=== PATIENT | male | born 1945 | race Caucasian/White ===

== ENCOUNTER 2016-06-26 11:45 | Emergency (ER) | payer OTHER ==
[~2016-06-26] VITALS: Ht 167.6 cm; Wt 91.8 kg
[2016-06-26 11:55] VITALS: BP 137/87; PULSE 84; RESP 16; TEMP 98.3; O2SAT 97
[2016-06-26] MEDS ORDERED: LISI40TA PO (12:12)
[2016-06-26] MEDS ORDERED: PROZ20CA11 PO (12:12)
[2016-06-26] MEDS ORDERED: TAMS0.4C4 PO (12:12)
[2016-06-26] MEDS ORDERED: MULT1TAB85 PO (12:12)
[2016-06-26] MEDS ORDERED: CARB25TA9 PO (12:12)
[2016-06-26] MEDS ORDERED: AMLO10TA2 PO (12:12)
[2016-06-26] MEDS ORDERED: ASPI1TAB69 PO (12:12)
[2016-06-26] MEDS ORDERED: BUPR75TA PO (12:12)
[2016-06-26] MEDS ORDERED: POTA-163 PO (12:12)
[2016-06-26] MEDS ORDERED: OXYB5TAB10 PO (12:12)
[2016-06-26] MEDS ORDERED: DIPHTH/TETANUS/ACEL PERTUSSIS (BOOSTER) 0.5 ML VIAL/PFS IM ONE (12:15)
--- NOTE | 2016-06-26 12:58 | PD ---
HPI Chief Complaint: Fall Time Seen by Provider: 12:03 Travel History International Travel<30 days: No Contact w/Intl Traveler<30days: No Traveled to known affect area: No History of Present Illness HPI Patient is a 71 year old male with a history of Parkinson's Disease, who comes in after a trip and fall today. He says his feet got tangled in a computer cord and he fell onto his face. He says it happened so quickly he was unable to get his hands out. He denies any LOC. He denies any headache, dizziness, nausea, vomiting. He denies any chest pain or any symptoms prior to the event. He says that his nose was bleeding and he was concerned that he broke his nose. He was evaluated by EMS and was advised to come to the ED. He does not know when his last tetanus vaccine was. He denies neck pain or tingling in his upper or lower extremities. PFSH Past Medical History Hx Anticoagulant Therapy: Yes (asa 81mg) Depression: Yes Cardiovascular Problems: Yes (htn on meds) Hypertension: Yes Parkinson's Disease: Yes Social History Alcohol Use: No Tobacco Use: No Substance Use: No Allergies-Medications (Allergen,Severity, Reaction): Coded Allergies: No Known Allergies (Unverified , 06/26/16) Reported Meds & Prescriptions Reported Meds & Active Scripts Active Amoxicillin 500 Mg Tab 500 Mg PO BID 7 Days Reported Aspirin 81 Mg Tabdr 81 Mg PO DAILY Multivitamin Men (Multiple Vitamins W/ Minerals) 1 Tab Tab 1 Tab PO DAILY Tamsulosin (Tamsulosin HCl) 0.4 Mg Cap 0.4 Mg PO HS Ditropan (Oxybutynin Chloride) 5 Mg Tab 5 Mg PO Q8HR Potassium Chloride ER (Potassium Chloride) 20 Meq Tab 20 Meq PO DAILY Bupropion HCl 75 Mg Tab 150 Mg PO BID Prozac (Fluoxetine HCl) 20 Mg Cap 20 Mg PO DAILY Carbidopa-Levodopa 25-100 Mg Tab 1 Tab PO Q8HR Amlodipine (Amlodipine Besylate) 10 Mg Tab 10 Mg PO DAILY Lisinopril 40 Mg Tab 40 Mg PO DAILY Review of Systems General / Constitutional: No: Fever, Chills Eyes: No: Diploplia, Blurred Vision HENT: No: Headaches, Lightheadedness Cardiovascular: No: Chest Pain or Discomfort Respiratory: No: Shortness of Breath Gastrointestinal: No: Nausea, Vomiting Musculoskeletal: No: Pain Skin: No Change in Pigmentation Neurologic: No: Weakness, Dizziness Physical Exam Narrative GENERAL: Awake and alert in no acute distress. SKIN: Warm and dry. Abrasion to the bridge of the nose, no active bleeding. HEAD: Hematoma to the middle of the forehead. No flores signs or raccoon eyes. EYES: Pupils equal and round. No scleral icterus. Extraocular movements intact. ENT: Mucous membranes pink and moist. No septal hematoma. No tenderness to palpation of the nose. NECK: Trachea midline. No JVD. No cervical spine tenderness. CARDIOVASCULAR: Regular rate and rhythm. No murmur appreciated. RESPIRATORY: No accessory muscle use. Clear to auscultation. Breath sounds equal bilaterally. MUSCULOSKELETAL: No obvious deformities. No clubbing. No cyanosis. No edema. NEUROLOGICAL: Awake and alert. No obvious cranial nerve deficits. Motor grossly within normal limits. Normal speech. Data Data Last Documented VS Vital Signs Date Time Temp Pulse Resp B/P Pulse Ox O2 Delivery O2 Flow Rate FiO2 06/26/16 14:40 74 20 142/94 97 Room Air 06/26/16 11:[address] Brain W/O Iv Contrast(Rout) (06/26/16 ) Ct Cerv Spine W/O Contrast (06/26/16 ) Ct Facial Bones W/O Iv Cont (06/26/16 ) Meom-Hiq-Atmixu (Booster) Inj (Boostrix (06/26/16 12:15) MDM Medical Decision Making Medical Screen Exam Complete: Yes Emergency Medical Condition: Yes Medical Record Reviewed: Yes Differential Diagnosis Fall versus ICH versus nasal bone fracture versus C-spine fracture versus hematoma Narrative Course Patient is a 71-year-old male who comes in after he tripped and fell on his face. Exam shows a hematoma to the forehead as well as a superficial laceration to the bridge of the nose. CT head, C-spine, facial bones performed. CT of the facial bones shows a comminuted nasal bone fracture, minimally displaced. There is no ICH or skull fracture present. CT of the C- spine is negative for any acute findings. Patient says he does not want any pain medicine at this time. Laceration on the nose continued to bleed, so Dermabond was applied. Patient advised to take Tylenol or ibuprofen as needed for pain. Given a prescription for amoxicillin for the nasal bone fracture and laceration to his nose. Advised follow-up with ENT. Advised to return to the ED as needed for any worsening symptoms. Patient and his are comfortable with this plan at this time. Diagnosis Primary Impression: Nasal bone fracture Qualified Code: S02.2XXA - Closed fracture of nasal bone, initial encounter Additional Impression: Fall Qualified Code: W19.XXXA - Fall, initial encounter Referrals: Jorge Luis Hernandez MD call for appointment Patient Instructions: General Instructions, Nasal Fracture (ED) Additional Instructions: Follow up with ENT. Take Tylenol or Ibuprofen as needed for pain. Take all of your antibiotic. Return to the ED as needed for any worsening symptoms. Scripts Amoxicillin 500 Mg Ngn999 Mg PO BID 7 Days Ref 0 Prov:Salina David MD 06/26/16 Disposition: 01 DISCHARGE HOME Condition: Stable Salina David MD Jun 26, 2016 12:58
--- NOTE | 2016-06-26 13:31 | RADHPO ---
EXAM DATE/TIME: 06/26/2016 13:17 [facility] COMPARISON: No previous studies available for comparison. INDICATIONS : Fell this morning. Frontal injury. RADIATION DOSE: 61.50 CTDIvol (mGy) MEDICAL HISTORY : Hypertension. SURGICAL HISTORY : None. ENCOUNTER: Initial ACUITY: 1 day PAIN SCALE: 3/10 LOCATION: cranial TECHNIQUE: Multiple contiguous axial images were obtained of the head. Using automated exposure control and adj ustment of the mA and/or kV according to patient size, radiation dose was kept as low as reasonably a chievable to obtain optimal diagnostic quality images. FINDINGS: CEREBRUM: The ventricles are normal for age. No evidence of midline shift, mass lesion, hemorrhage or acute in farction. No extra-axial fluid collections are seen. POSTERIOR FOSSA: The cerebellum and brainstem are intact. The 4th ventricle is midline. The cerebellopontine angle i s unremarkable. EXTRACRANIAL: The visualized portion of the orbits is intact. SKULL: The calvaria is intact. No evidence of skull fracture. There is soft tissue swelling over the left f rontal bone. CONCLUSION: Soft tissue swelling over the left frontal bone with no acute hemorrhage or mass effe ct. Garfield Anne MD on June 26, 2016 at 13:28 Board Certified Radiologist. This report was verified electronically.
--- NOTE | 2016-06-26 13:46 | RADHPO ---
EXAM DATE/TIME: 06/26/2016 13:17 [facility] COMPARISON: No previous studies available for comparison. INDICATIONS : Fell this morning. Frontal injury. Facial abrasion with pain and swelling RADIATION DOSE: 25.71 CTDIvol (mGy) MEDICAL HISTORY : Hypertension. SURGICAL HISTORY : None. ENCOUNTER: Initial ACUITY: 1 day PAIN SCORE: 3/10 LOCATION: facial TECHNIQUE: Volumetric scanning of the facial bones was performed. Using automated exposure control and adjustme nt of the mA and/or kV according to patient size, radiation dose was kept as low as reasonably achiev able to obtain optimal diagnostic quality images. FINDINGS: ORBITS: The orbital and infraorbital osseous structures are intact. The retroconal structures have a normal configuration. No radiopaque foreign bodies are seen. NASAL BONE: There is a mildly comminuted nondisplaced nasal bone fracture with mild overlying soft tissue swellin g. ZYGOMATIC ARCHES: Symmetric without evidence of fracture. SINUSES: The maxillary, ethmoid and frontal sinuses are intact. No air-fluid levels seen. NASAL CAVITY: The nasal septum is intact and midline. The lacrimal ducts are intact. SOFT TISSUES: No radiopaque foreign bodies seen. There is soft tissue swelling over the frontal bone. INTRACRANIAL: No intracranial air seen. CRIBIFORM PLATE: Grossly intact. CONCLUSION: 1. Mildly comminuted nondisplaced nasal bone fracture with overlying soft tissue swelling. 2. Soft tissue swelling over the frontal bone. Garfield Anne MD on June 26, 2016 at 13:43 Board Certified Radiologist. This report was verified electronically.
--- NOTE | 2016-06-26 14:26 | RADHPO ---
EXAM DATE/TIME: 06/26/2016 13:17 [facility] COMPARISON: No previous studies available for comparison. INDICATIONS : Fell this morning. Frontal injury. Neck pain. RADIATION DOSE: 26.68 CTDIvol (mGy) MEDICAL HISTORY : Hypertension. SURGICAL HISTORY : None. ENCOUNTER: Initial ACUITY: 1 day PAIN SCALE: 3/10 LOCATION: neck TECHNIQUE: Volumetric scanning of the cervical spine was performed. Multiplanar reconstructions in the sagittal, coronal and oblique axial planes were performed. Using automated exposure control and adjustment o f the mA and/or kV according to patient size, radiation dose was kept as low as reasonably achievable to obtain optimal diagnostic quality images. FINDINGS: The sagittal reconstructions demonstrate normal alignment and normal prevertebral soft tissues. The d ens is intact and there is a normal atlantoaxial relationship. Mild degenerative disc changes are pre sent with disc space narrowing and hypertrophic change. The axial images demonstrate that the vertebral bodies and posterior elements are intact. The soft ti ssues are within normal limits. There is no evidence of acute fracture or malalignment. CONCLUSION: Negative trauma CT. Garfield Anne MD on June 26, 2016 at 14:23 Board Certified Radiologist. This report was verified electronically.
[2016-06-26 14:40] VITALS: BP 142/94; PULSE 74; RESP 20; O2SAT 97
[2016-06-26] MEDS ORDERED: AMOX500T PO (14:42)
== END 2016-06-26 15:07 | disposition home or self-care (01) ==
LOC: PHEFT 11:45
DX: S02.2XXA Fracture of nasal bones, initial encounter for closed fracture (principal); W18.09XA Striking against other object with subsequent fall, initial encounter; Z23 Encounter for immunization
CPT/HCPCS: 12011; 70450; 70486; 72125; 90471; 90715

== ENCOUNTER 2018-02-28 13:27 | Inpatient (IN) ==
--- NOTE | 2018-02-28 13:36 | ED ---
HPI General Stated Complaint: stroke alert Time Seen by Provider: 02/28/18 13:30 Source: EMS Mode of arrival: EMS Limitations: altered mental status History of Present Illness Onset (ago): hour(s) (1) Time: 12:30 Timing confirmed by: spouse Location: Reports right face and altered History of same: No Severity: moderate Relieving factors: none Exacerbating factors: none Context: Reports sudden onset On Anticoagulants: No Treatments Prior to Arrival: Reports none Related Data Allergies Allergy/AdvReac Type Severity Reaction Status Date / Time No Known Allergies Allergy Uncoded 06/26/16 12:10 Review of Systems ROS Unobtainable ROS Unobtainable: unobtainable due to mental status Exam Const General: cooperative, healthy appearing and comfortable Orientation: awake HENMT Head: normal to inspection, normocephalic and atraumatic Eyes Alignment and Position: alignment normal Conjunctivae: conjunctivae normal Sclera: sclerae normal Pupils: PERRL EOM: movement deficit unable to deviate medially (on right) and unable to deviate laterally (on left) Neck Neck: normal visual inspection, no lymphadenopathy and no meningeal signs Chest Chest: normal inspection of the chest Resp Effort & Inspection: normal respiratory effort and able to speak in complete sentences Auscultation: clear to auscultation bilaterally Cardio Rate: regular rate Rhythm: regular rhythm Back/Spine/Pelvis Cervical Spine: cervical ROM normal Thoracic/Lumbar Spine: thoraco-lumbar ROM normal Skin General: no rashes or lesions noted, turgor normal and dry skin Neuro General: awake and moves all extremities Cranial Nerves: other Cognition: abnormal cognition (Sleepy. He does open his eyes to command. He moves his extremities on command.) Speech: anomia and expressive aphasia Motor: strength 5/5 throughout and no fasciculations Extrem General: normal to inspection and full ROM Psych Appearance: grossly normal Mental Status: mental status grossly normal Speech and Movement: speech and movement normal Mood: congruent mood Affect: normal affect Attitude: cooperative Thought Process: normal Thought Content: normal Judgment: judgment good Course Reevaluation(s) Reevaluation #1: No change in his neurological status on return from CT. Time: 14:16 Consultations Consultation #1: Dr. Martinez, radiologist, reports that the CT of his head is negative for bleed. Time: 14:02 Consultation #2: Dr. Martinez, radiologist, reports that the CTA of his head is negative. Time: 14:18 Consultation #3: Dr. Dove, neurologist. Time: 13:39 Additional Consultation(s): Dr. Hardin, manager transfusion Initial Documented Vital Signs Pulse Oximetry 97 02/28/18 14:04 Last Documented Vital Signs Pulse Oximetry 97 02/28/18 14:09 Critical Care Time Critical Care Time: Yes Total Critical Care Time: 60 Attestation: Time to perform other separately billable procedures was not included in the critical care time. My time did not include minutes spent treating any other patients simultaneously or on activities that did not directly contribute to the patient's treatment. The services I provided to this patient were to treat and/or prevent clinically significant deterioration due to acute neurological event I provided critical care services requiring my management, as noted below: Chart data review, documentation time, medication orders and management, vital sign assessments/reviewing monitor data, ordering and reviewing lab tests, ordering and interpreting/reviewing x-rays and diagnostic studies, care of the patient and discussion of the patient with the admitting physicians NIH Stroke Scale NIHSS Time Completed NIHSS Time Completed: 13:28 NIH Stroke Scale Level of Consciousness: 1-Drowsy Orientation Questions: 2-Neither task correct Responds to Commands: 0-Both tasks correct Gaze Eye Movement: 2-Complete gaze palsy (won't look to left) Facial Movement: 1-Minor facial palsy Motor Functions Arm LEFT: 0-No drift Motor Functions Arm RIGHT: 0-No drift Motor Functions Leg LEFT: 0-No drift Motor Functions Leg RIGHT: 0-No drift Limb Ataxia: 0-No ataxia Sensory Loss: 0-No sensory loss Best Language: 3-Mute or global aphasia Articulation: 2-Severe dysarthria Extinction or Inattention Sensory: 0-Absent Total: 11 Medical Decision Making [facility] Narrative Medical decision making narrative: This patient presents with acute neurological symptoms. Onset 12:30 PM. He was reportedly normal prior to that. EVAC got the history from his that he has had several recent falls with blows to his head. He has not sought medical care following the falls. He reportedly takes no anticoagulants. His subsequently became available for interview. He does not take an anticoagulant. He does take aspirin. She is able to confirm the onset of symptoms at 12:30 PM. Medical Screen Exam Complete: Yes Emergency Medical Condition: Yes Differential Diagnosis Differential Diagnosis: Differential diagnosis includes but is not limited to TIA, CVA, brain tumor, migraine, anxiety Medical Records Medical records reviewed: Yes I reviewed the patient's medical records. He has a history of Parkinson's disease and hypertension. He has been on aspirin in the past. There is no record of an oral anticoagulant. Lab Data Lab Results 02/28/18 Range/Units 13:29 POC Hgb (Calc) 10.5 L (13.0-17.0) g/dL POC Hct 31.0 L (39-51.0) % POC Sodium 146 H (137-144) mmol/L POC Potassium 3.2 L (3.6-5.0) mmol/L POC Chloride 106 (102-111) mmol/L POC BUN 28 H (5-21) mg/dL POC Creatinine 1.4 H (0.6-1.3) mg/dL POC Glucose 139 H (68-110) mg/dL Imaging Data Radiologist's impression: Head CT 02/28/18 13:36 CONCLUSION: 1. No acute intracranial abnormality. 2. Atrophy. 3. Prominent ventricles slightly out of range for the overlying sulcal pattern. This may relate to more centralized forms of atrophy but I cannot exclude normal pressure hydrocephaly. Report was called by [Dr. Martinez to Dr. Linares at 1402 hours ] Head CTA 02/28/18 13:36 CONCLUSION: 1. Negative CTA Head. Results were called to Dr. Linares by Dr. Martinez at 1417 hours ECG Data EKG Prior to Arrival: No Attestation: I personally reviewed and interpreted this ECG as follows: (EKG shows a sinus rhythm with a rate of. He has a right bundle branch block. No acute STT wave changes.) Discharge Plan Discharge Disposition Patient Disposition: 30 Still Patient Discharge Details Diagnosis: Acute embolic stroke Physicians Team ED Provider: Jinny Linares Primary Care Provider: Joe Georges Other Providers: Bessy Dove Status ED Status: With Doctor
[2018-02-28] MEDS ORDERED: ALTEPLASE DRIP IV.SIG ONE (14:04)
[2018-02-28] MEDS ORDERED: Alteplase Bolus 9 MG/9 ML Syringe IV.PUSH ONE (14:04)
--- NOTE | 2018-02-28 14:07 | CT ---
EXAM DATE: 02/28/2018 1:38 PM EDT AGE/SEX: 72 years / Male INDICATIONS: STROKE ALERT CLINICAL DATA: This is the patient's initial encounter. Patient reports that signs and symptoms have been present for 1 day and indicates a pain score of Nonresponsive. MEDICAL/SURGICAL HISTORY: Non-responsive. Non-responsive. RADIATION DOSE: 60.59 CTDI (mGy) COMPARISON: C, CTA HEAD W CONTRAST W 3D, 02/28/2018. . TECHNIQUE: CT of the head without contrast. Using automated exposure control and adjustment of the mA and/or kV according to patient size, radiation dose was kept as low as reasonably achievable to ob tain optimal diagnostic quality images. DICOM format image data is available electronically for revi ew and comparison. FINDINGS: Cerebrum: Supratentorial and renal atrophy. Ventricular pattern is prominent and slightly out of ran ge for the overlying sulcal pattern. The ventricles are normal for age. No evidence of midline shift , mass lesion, hemorrhage or acute infarction. No extraaxial fluid collections are seen. Posterior Fossa: The cerebellum and brainstem are intact. The 4th ventricle is midline. The cerebe llopontine angle is unremarkable. Extracranial: The visualized portion of the orbits is intact. Skull: The calvaria is intact. No evidence of skull fracture. CONCLUSION: 1. No acute intracranial abnormality. 2. Atrophy. 3. Prominent ventricles slightly out of range for the overlying sulcal pattern. This may relate to m ore centralized forms of atrophy but I cannot exclude normal pressure hydrocephaly. Report was called by [Dr. Martinez to Dr. Linares at 1402 hours ] Electronically signed by: Jc Martinez MD 02/28/2018 2:06 PM EDT
--- NOTE | 2018-02-28 14:20 | CT ---
EXAM DATE: 02/28/2018 1:38 PM EDT AGE/SEX: 72 years / Male INDICATIONS: STROKE ALERT CLINICAL DATA: This is the patient's initial encounter. Patient reports that signs and symptoms have been present for 1 day and indicates a pain score of Nonresponsive. MEDICAL/SURGICAL HISTORY: Non-responsive. Non-responsive. RADIATION DOSE: 10.68 CTDI (mGy) ; Combined studies COMPARISON: [facility] [place], CT HEAD W/O CONTRAST, 02/28/2018. . TECHNIQUE: Volumetric scanning was performed using a multi-row detector CT scanner during bolus infu mary of 75ML ml Visipaque 320 (iodixanol) nonionic water-soluble contrast as a cumulative dose for m ultiple exams. The data was post processed with a variety of visualization algorithms including ful l volume maximum intensity projection, multi-planar sliding thin slab reformation, curved planar refo rmation, and surface rendering techniques. Using automated exposure control and adjustment of the mA and/or kV according to patient size, radiation dose was kept as low as reasonably achievable to obta in optimal diagnostic quality images. DICOM format image data is available electronically for review and comparison. FINDINGS: There is excellent visualization of the major intracranial arteries out to the second-order branch ve ssels. There is no evidence for aneurysm, vessel truncation or stenosis, and no evidence for vascula r malformation. CONCLUSION: 1. Negative CTA Head. Results were called to Dr. Linares by Dr. Martinez at 1417 hours Electronically signed by: Jc Martinez MD 02/28/2018 2:19 PM EDT
[2018-02-28] MEDS: Sod Chloride 0.9% Inj 1,000 ML IV.CONT SCH (14:32)
[2018-02-28] MEDS ORDERED: HYDROmorphone PF Inj 1 MG/ML Ampul IV.PUSH PRN (14:34)
[2018-02-28] MEDS ORDERED: Acetaminophen 325 MG Tablet PO PRN (14:34)
[2018-02-28] MEDS ORDERED: Bisacodyl 10 MG Supp RECTAL PRN (14:34)
--- NOTE | 2018-02-28 14:37 | CT ---
EXAM DATE: 02/28/2018 1:38 PM EDT AGE/SEX: 72 years / Male INDICATIONS: STROKE ALERT CLINICAL DATA: This is the patient's initial encounter. Patient reports that signs and symptoms have been present for 1 day and indicates a pain score of Nonresponsive. MEDICAL/SURGICAL HISTORY: Non-responsive. Non-responsive. RADIATION DOSE: 10.68 CTDI (mGy) ; Combined studies COMPARISON: No prior exams available for comparison. TECHNIQUE: Volumetric scanning was performed using a multirow detector CT scanner during bolus infus ion of 75ML ml Visipaque 320 (iodixanol) nonionic water-soluble contrast as a cumulative dose for mu ltiple exams. The data was postprocessed with a variety of visualization algorithms including full- volume maximum intensity projection, multiplanar sliding thin-slab reformation, curved-planar reforma tion, and surface-rendering techniques. Using automated exposure control and adjustment of the mA an d/or kV according to patient size, radiation dose was kept as low as reasonably achievable to obtain optimal diagnostic quality images. DICOM format image data is available electronically for review an d comparison. FINDINGS: Aortic Arch: There is a three-vessel origin of the great vessels from the aorta. No evidence of ost ial narrowing Right Carotid: The common carotid artery is intact. The carotid bulb has a normal configuration wit hout ulceration or narrowing. The internal carotid artery lumen is smooth without stenosis. The ext ernal carotid artery is intact. Left Carotid: The common carotid artery is intact. The carotid bulb has a normal configuration with out ulceration or narrowing. The internal carotid artery lumen is smooth without stenosis. The exte rnal carotid artery is intact. Vertebrals: The vertebral arteries have a symmetric diameter. No stenotic lesions are seen. A degenerative cervical spine. Percent stenosis is calculated using the diameter of the stenotic region over the diameter of the nor mal distal internal carotid artery. CONCLUSION: 1. Patent carotid arteries and vertebral arteries bilaterally. Electronically signed by: Jc Martinez MD 02/28/2018 2:36 PM EDT
[2018-02-28] MEDS ORDERED: Labetalol HCl Inj 100 MG/20 ML Vial IV.PUSH PRN (14:38)
[2018-02-28] MEDS ORDERED: niCARdipine Inj 25 MG in Sodium Chlor 0.9% Inj 240 ML IV.CONT PRN (14:38)
[2018-02-28] MEDS ORDERED: Dextrose 50% in Water 50 ML Vial IV.PUSH PRN (14:38)
[2018-02-28] MEDS ORDERED: Magnesium Sulfate Inj 2 GM in Sodium Chlor 0.9% Inj 96 ML IV.SIG PRN (14:44)
[2018-02-28] MEDS ORDERED: Magnesium Sulfate Inj 4 GM in Sodium Chlor 0.9% Inj 92 ML IV.SIG PRN (14:44)
[2018-02-28] MEDS ORDERED: Potassium Chlor 20 mEq Premix 20 MEQ/100 ML PIGGYBACK IV.SIG PRN (14:44)
[2018-02-28] MEDS ORDERED: Sodium Phosphate Inj 30 MMOL in Sodium Chlor 0.9% Inj 250 ML IV.SIG PRN (14:44)
[2018-02-28] MEDS ORDERED: Potassium Phosphate Inj 30 MMOL in Sodium Chlor 0.9% Inj 250 ML IV.SIG PRN (14:44)
[2018-02-28] MEDS ORDERED: Potassium Phosphate 500 MG Soluble Tablet PO PRN ×2 (14:44)
[2018-02-28] MEDS ORDERED: Potassium Chlor 40 mEq Premix 40 MEQ/100 ML PIGGYBACK IV.SIG PRN ×2 (14:44)
[2018-02-28] MEDS ORDERED: Magnesium Oxide 400 MG Tablet PO PRN (14:44)
--- NOTE | 2018-02-28 15:11 | XR ---
EXAM DATE: 02/28/2018 1:36 PM EDT AGE/SEX: 72 years / Male INDICATIONS: Stroke alert. CLINICAL DATA: This is the patient's initial encounter. Patient reports that signs and symptoms have been present for 1 day and indicates a pain score of 0/10. MEDICAL/SURGICAL HISTORY: Hypertension. None. COMPARISON: . FINDINGS: A single AP view of the chest demonstrates the lungs to be symmetrically aerated without evidence of mass, infiltrate or effusion. Lungs are under aerated.. The cardiomediastinal contours are unremarkab le. Osseous structures are intact. CONCLUSION: Negative for acute process Electronically signed by: Marcell Marinelli MD 02/28/2018 3:09 PM EDT
--- NOTE | 2018-02-28 15:14 | P.HPCC ---
History of Present Illness Service: Critical care medicine Primary Care Physician: Joe Georges MD Chief Complaint: Global aphasia with right-sided weakness/acute History of Present Illness: This is a 72-year-old male. Admission 02/28/2018. Past medical history includes depression/Parkinson's disease/BPH, urge incontinence, hypertension with history of nasal fracture. Over the past month, patient has had 8 falls according to at bedside. Patient denies however. Patient presents to [facility] acute onset of global aphasia and subjective right-sided weakness with facial droop according to . NIH scale was 11 documented with 1 for loss of consciousness, 2 for orientation, 3 for global aphasia, 2 for dysarthria, and 3 for lack of gaze to the left side CT brain revealed ventriculomegaly but no acute intracranial findings. CT angiogram of brain negative for acute intracranial findings. Sodium was elevated 146 potassium 3.2. Creatinine 1.4. Hemoglobin 10.5. Case was discussed with Dr. Dove/neurology. Patient received 7.7 mg alteplase bolus followed by 69.3 mg On my examination the patient does have a slight right facial droop. Aphasia seems resolving. He is currently oriented to person place and time. There is currently no field vision cut. His Parkinson's tremor makes coordination difficult to evaluate but strength is 5 out of 5 bilateral upper and lower extremities. Review of Systems Constitutional: Denies anorexia, Denies body ache(s), Denies chills Eyes: Reports blurry vision, Denies blind spots, Denies requires corrective lenses Ears, Nose, Mouth, and Throat: Reports poor balance, Denies abnormal hearing, Denies post nasal drip Cardiovascular: Denies chest pain, Denies shortness of breath, Denies shortness of breath with activity Respiratory: Denies chest congestion, Denies cough Gastrointestinal: Denies abdominal pain Genitourinary: Reports difficulty urinating, Reports urinary frequency, Reports urinary hesitancy, Reports urinary incontinence Musculoskeletal: Reports abnormal walking, Denies back pain, Denies body aches, Denies neck pain Skin/Breast: Denies bleeding lesions Neurologic: Reports abnormal movements, Reports abnormal walking, Reports frequent falls, Reports lack of coordination, Reports loss of vision, Denies abnormal hearing, Denies dizziness, Denies localized weakness, Denies numbness Psychiatric: Reports depression, Denies anxiety Endocrine: Denies cold intolerance, Denies excessive sweating Hematologic/Lymphatic: Denies easy bleeding Allergic/Immunologic: Denies GI upset with certain foods PMFSH - History History Provided By: Family Member, Audio Visual Equipment Rental Clerk / EMT - Medical History Medical History: Medical History (Last Updated 02/28/18 @ 15:11 by Royal Hardin MD) Depression Enlarged prostate Hypertension Parkinson disease Restless leg syndrome Sleep apnea Varicose vein of leg - Surgical History Surgical History: Surgical History (Last Updated 02/28/18 @ 15:11 by Royal Hardin MD) History of tonsillectomy and adenoidectomy History of varicose vein stripping - Family History Family History: Family History (Last Updated 02/28/18 @ 15:11 by Royal Hardin MD) Mother Family history of depression Father Family history of depression - Tobacco History Second Hand Smoke Exposure: No Tobacco Use In Past 30 Days: No Smoking Status: Former smoker Tobacco Type: Cigarettes - Alcohol History How Often Do You Have a Drink Containing Alcohol: Never - Travel History History of Recent Travel: No Recent Travel in the [place] Within the Last 8 Weeks: No Recent Travel Out of the Country Within the Last 8 Weeks: No Medications and Allergies Active Medications: Active Medications Acetaminophen (Tylenol) 650 mg PO Q6H PRN PRN Reason: PAIN 1-10 AND/OR FEVER >101F Hydrocodone Bitart/Acetaminophen (Ada 5/325) 1 tab PO Q4H PRN PRN Reason: PAIN SCALE 1 TO 5 Al Hydroxide/Mg Hydroxide (Milk Of Aman Pedrozaq) 30 ml PO Q12H PRN PRN Reason: Mild Constipation Albuterol (Albuterol Neb (Prn)) 2.5 mg NEB Q2HR NEB PRN PRN Reason: SHORTNESS OF BREATH/WHEEZING Bisacodyl (Dulcolax Supp) 10 mg RECTAL DAILY PRN PRN Reason: SEVERE CONSITIPATION Chlorhexidine Gluconate (Chlorhexidine 2% Cloth) 3 pack TOPICAL DAILY@0400 BRITTNI Stop: 03/06/18 03:59 Chlorhexidine Gluconate (Chlorhexidine 2% Cloth) 3 pack TOPICAL DAILY@0400 PRN PRN Reason: Extra cloth needed Stop: 03/06/18 03:59 Dextrose (D50w Vial) 50 ml IV.PUSH UNSCH PRN PRN Reason: PER HYPOGLYCEMIA PROTOCOL Glucagon (Glucagon Inj) 1 mg OTHER UNSCH PRN PRN Reason: for Hypoglycemia Protocol Hydromorphone HCl (Dilaudid Pf Inj) 1 mg IV.PUSH Q4H PRN PRN Reason: PAIN SCALE 6 TO 10 Sodium Chloride (Ns Inj) 1,000 mls @ 70 mls/hr IV.CONT .[id number] [facility] Last Admin: 02/28/18 14:32 Dose: 70 mls/hr Nicardipine HCl 25 mg/ Sodium (Chloride) 250 mls @ 25 mls/hr IV.CONT TITRATE PRN; Protocol PRN Reason: Per Protocol Magnesium Sulfate 4 gm/ Sodium (Chloride) 100 mls @ 50 mls/hr IV.SIG UNSCH PRN PRN Reason: For Magnesium 0.9 - 1.1 mg/dL Magnesium Sulfate 2 gm/ Sodium (Chloride) 100 mls @ 50 mls/hr IV.SIG UNSCH PRN PRN Reason: For Magnesium 1.2 - 1.6 mg/dL Potassium Chloride (Kcl 40 Meq Premix Inj) 40 meq in 100 mls @ 50 mls/hr IV.SIG Q2H PRN PRN Reason: For Potassium 2.8 - 3.2 mEq/L Potassium Chloride (Kcl 20 Meq Premix Inj) 20 meq in 100 mls @ 50 mls/hr IV.SIG Q2H PRN PRN Reason: For Potassium 3.3 - 3.5 mEq/L Potassium Chloride (Kcl 40 Meq Premix Inj) 40 meq in 100 mls @ 25 mls/hr IV.SIG UNSCH PRN PRN Reason: For Potassium 3.3 - 3.5 mEq/L Potassium Chloride (Kcl 20 Meq Premix Inj) 20 meq in 100 mls @ 50 mls/hr IV.SIG Q2H PRN PRN Reason: For Potassium 2.8 - 3.2 mEq/L Potassium Phosphate 30 mmol/ (Sodium Chloride) 260 mls @ 42 mls/hr IV.SIG UNSCH PRN PRN Reason: SEE LABEL COMMENTS Sodium Phosphate 30 mmol/ (Sodium Chloride) 260 mls @ 42 mls/hr IV.SIG UNSCH PRN PRN Reason: For Phosphorus < 2.5 mg/dL Insulin Aspart (Novolog Insulin Correctional Sugar Inj) 0 unit SQ Q6HR BRITTNI; Protocol Labetalol HCl (Trandate Inj) 10 mg IV.PUSH Q1H PRN PRN Reason: SBP>180, DBP>100, HR>65 Lactulose (Lactulose Liq) 30 ml PO DAILY PRN PRN Reason: SEVERE CONSITIPATION Magnesium Oxide (Mag-Ox) 800 mg PO UNSCH PRN PRN Reason: For Magnesium 1.2 - 1.6 mg/dL Ondansetron HCl (Zofran Inj) 4 mg IV.PUSH Q6H PRN PRN Reason: NAUSEA OR VOMITING Pantoprazole Sodium (Protonix Inj) 40 mg IV.PUSH DAILY BRITTNI Potassium Bicarb/Potassium Chloride (K-Lyte Cl Eff) 50 meq PO UNSCH PRN PRN Reason: For Potassium 3.3 - 3.5 mEq/L Potassium Phosphate (K-Phos Original) 2,000 mg PO Q4H PRN PRN Reason: Phosphorus Less Than 2.5 mg/dL Potassium Phosphate (K-Phos Original) 2,000 mg PO UNSCH PRN PRN Reason: SEE LABEL COMMENTS Pravastatin Sodium (Pravachol) 40 mg PO HS BRITTNI Senna/Docusate Sodium (Norma-Colace) 1 tab PO BID BRITTNI Sennosides (Senokot) 17.2 mg PO Q12H PRN PRN Reason: Moderate Constipation Sodium Chloride (Ns Flush) 2 ml IV.FLUSH BID BRITTNI Sodium Chloride (Ns Flush) 2 ml IV.FLUSH UNSCH PRN PRN Reason: FLUSH AFTER USING IV ACCESS Allergies Allergy/AdvReac Type Severity Reaction Status Date / Time No Known Allergies Allergy Uncoded 06/26/16 12:10 Results - Imaging Impressions Head CT 02/28/18 13:36 CONCLUSION: 1. No acute intracranial abnormality. 2. Atrophy. 3. Prominent ventricles slightly out of range for the overlying sulcal pattern. This may relate to more centralized forms of atrophy but I cannot exclude normal pressure hydrocephaly. Report was called by [Dr. Martinez to Dr. Linares at 1402 hours ] Head CTA 02/28/18 13:36 CONCLUSION: 1. Negative CTA Head. Results were called to Dr. Linares by Dr. Martinez at 1417 hours Neck CTA 02/28/18 13:36 CONCLUSION: 1. Patent carotid arteries and vertebral arteries bilaterally. Exam Vital signs: Vital Signs 02/28/18 14:04 02/28/18 14:09 02/28/18 14:24 Temperature 98.6 F Pulse Rate 63 Respiratory Rate 18 Blood Pressure 165/78 H Pulse Oximetry 97 97 97 Intake & Output 02/27/18 02/28/18 02/28/18 18:59 06:59 18:59 Weight 85.4 kg - Constitutional no acute distress - Routine HEENT Exam Head: Present: normocephalic, atraumatic Eye: Present: EOMI, PERRL, normal accommodation ENT: Present: mucous membranes moist - Routine Neck Exam Present: supple, full ROM. Absent: JVD, carotid bruit - Routine Chest/Breast/Axilla Exam Chest wall: Absent: tenderness Breast: Absent: tenderness Axillae: Absent: lymphadenopathy - Routine Respiratory Exam Present: CTA bilaterally. Absent: accessory muscle use, rhonchi - Routine Cardiovascular Exam Present: RRR, S1, S2. Absent: murmur - Routine Abdominal Exam Present: soft, normoactive bowel sounds - Routine Extremities Exam Absent: cyanosis, clubbing, edema - Routine Skin Exam Present: intact - Routine Neurological Exam Present: alert, oriented X3, pronator drift, moving all extremities, hearing grossly intact, tremors. Absent: CN II-XII intact (Right facial droop), sensory deficit, motor deficit, altered mental status, hemineglect, fasciculations, normal speech - Detailed Neurological Exam Speech: Present: slurred Cerebellar function: Abnormal finger to nose, Abnormal heel to back, Abnormal dysdiadochokinesia Sensory: Normal lower extremity light touch, Normal lower extremity pin prick, Abnormal LE 2-point discrimination DTR: 4+: biceps (L), biceps (R), patellar (L), patellar (R) Septic Shock Reassessment Septic shock perfusion: reassessment completed Caprini VTE Risk Assessment Caprini VTE Risk Assessment: Moderate/High Risk (score >= 2) VTE Pharmacological Exception Reason: Documented Caprini Risk Assessment Model: Point Value = 1 Point Value = 2 Point Value = 3 Point Value = 5 Age 41-60 Minor surgery BMI > 25 kg/m2 Swollen legs Varicose veins or History of unexplained or recurrent spontaneous Oral contraceptives or hormone replacement Sepsis (< 1 month) Serious lung disease, including pneumonia (< 1 month) Abnormal pulmonary function Acute myocardial infarction Congestive heart failure (< 1 month) History of inflammatory bowel disease Medical patient at bed rest Age 61-74 Arthroscopic surgery Major open surgery (> 45 min) Laparoscopic surgery (> 45 min) Malignancy Confined to bed (> 72 hours) Immobilizing plaster cast Central venous access Age >= 75 History of VTE Family history of VTE Factor V Leiden Prothrombin [id number] Lupus anticoagulant Anticardiolipin antibodies Elevated serum homocysteine Heparin-induced thrombocytopenia Other congenital or acquired thrombophilia Stroke (< 1 month) Elective arthroplasty Hip, pelvis, or leg fracture Acute spinal cord injury (< 1 month) Prophylaxis Regimen: Total Risk Factor Score Risk Level Prophylaxis Regimen 0-1 Low Early ambulation 2 Moderate Order ONE of the following: *Sequential Compression Device (SCD) *Heparin 5000 units SQ BID 3-4 Higher Order ONE of the following medications: *Heparin 5000 units SQ TID *Enoxaparin/Lovenox 40 mg SQ daily (WT < 150 kg, CrCl > 30 mL/min) *Enoxaparin/Lovenox 30 mg SQ daily (WT < 150 kg, CrCl > 10-29 mL/min) *Enoxaparin/Lovenox 30 mg SQ BID (WT < 150 kg, CrCl > 30 mL/min) AND/OR *Sequential Compression Device (SCD) 5 or more Highest Order ONE of the following medications: *Heparin 5000 units SQ TID (Preferred with Epidurals) *Enoxaparin/Lovenox 40 mg SQ daily (WT < 150 kg, CrCl > 30 mL/min) *Enoxaparin/Lovenox 30 mg SQ daily (WT < 150 kg, CrCl > 10-29 mL/min) *Enoxaparin/Lovenox 30 mg SQ BID (WT < 150 kg, CrCl > 30 mL/min) AND *Sequential Compression Device (SCD) Assessment and Plan - Assessment and Plan Plan: Neuro/Psych: CVA status post alteplase Parkinson's disease Depressive disorder NOS CT/CTA brain revealed no acute findings with exception of ventriculomegaly. Possible workup of NPH in future. MRI brain ordered along with carotid ultrasound Received 7.7 mg alteplase bolus followed by 69.3 mg over the preceding hour Neurology consultation 2D echocardiogram ordered Keep systolic blood pressure less than 180, diastolic pressure is 105 Hemoglobin A1c and lipid profile ordered Currently holding carbidopa/levodopa 25/101 tablet every 8 hours for Parkinson' s disease. Resume when clinically indicated Currently holding fluoxetine 20 mg daily and bupropion 150 mg twice daily for depression. Resume when clinically indicated Neurology consult appreciated Neurochecks per status post alteplase for CVA protocol. Head of bed flat times 12 hours CV: Essential hypertension Currently holding amlodipine 10 mg daily and lisinopril 40 mg a day for hypertension resume when clinically indicated As needed labetalol 10 mg IV every 8 hours and nicardipine drip to keep systolic blood pressure less than 180/diastolic blood pressure less than 105 2D echocardiogram ordered Lipid profile pending/started on pravastatin 40 mg at night Resp: Nasal cannula to maintain saturations greater than or equal to 92% Incentive spirometry while awake As needed albuterol aerosols every 2 hours. Dyspnea GI: N.p.o. status Pantoprazole for GI prophylaxis Docusate sodium/senna 1 tablet twice daily for bowel regimen : BPH urge incontinence Currently holding tamsulosin 0.4 mg daily and oxybutynin 5 mg every 8 hours for BPH has incontinence. Resume clinically indicated Endo: Sliding scale insulin to maintain euglycemia aspart insulin every 6 insulin low regimen Check TSH Renal: Acute kidney injury Monitor urine output Accurate I's and O's Avoid nephrotoxic medication Heme: Anemia Full CBC in a.m. to evaluate ID: Monitor for signs and symptomatology of infection MSK: Gait and balance disorder PT/OT evaluate and treat FEN: Hypernatremia Hypopotassemia Replace electrolytes as clinically indicated per ICU electrolyte protocol Currently on normal saline at 70 cc an hour BMP, magnesium phosphorus in a.m. Access -Utilize peripheral IV. Central line if indicated Prophylaxis -GI -pantoprazole -DVT -SCD/no pharmacological prophylaxis 24 hours post alteplase Level 3 admission Code Status: Full code Discussed Condition With: Patient. . ED physician Vijay. Care plan discussed and all questions answered.
--- NOTE | 2018-02-28 16:08 | P.CONNEU ---
History of Present Illness Service: Neurology Consult date: 02/28/18 Reason for Consult: Stroke Primary Care Provider: Joe Georges MD Chief Complaint: Global aphasia with right-sided weakness/acute History of Present Illness: 72 y/o male with hx of PD and HTN was brought to the hospital by [facility] for stroke alert. Pts noted that he was having weakness while trying to walk, he stated that he felt lightheaded. His noted facial droop and right sided weakness and difficulty with speech. This was noted on admission to the ER. No previous hx of stroke or TIA. He takes ASA 81mg daily at home and did not miss any doses. He denies any hx of atrial fibrillation. He had previously been on Sinemet for his PD but this caused lightheadedness and was changed to Requip 0.5mg tid. He follows outpatient with Dr. Muller for neurology. He had negative CT and CTA, it was decided he would be given TPA. His notes that his speech began improving after he received the TPA. He denies any current problems, his no longer notices problems with his speech. He denies headache or chest pain or shortness of breath Review of Systems All other systems reviewed negative except as stated in HPI PMFSH - History History Provided By: Family Member, Audio Visual Engineer / EMT - Medical History Medical History: Medical History (Last Reviewed 03/01/18 @ 09:29 by Jorge Luis Moon) Depression Enlarged prostate Hypertension Parkinson disease Restless leg syndrome Sleep apnea Varicose vein of leg - Surgical History Surgical History: Surgical History (Last Reviewed 03/01/18 @ 09:29 by Jorge Luis Moon) History of tonsillectomy and adenoidectomy History of varicose vein stripping - Family History Family History: Family History (Last Updated 02/28/18 @ 15:11 by Royal Hardin MD) Mother Family history of depression Father Family history of depression - Tobacco History Second Hand Smoke Exposure: No Tobacco Use In Past 30 Days: No Smoking Status: Former smoker Tobacco Type: Cigarettes - Alcohol History How Often Do You Have a Drink Containing Alcohol: Never - Substance Use History Substance History: No History of Abuse - Travel History History of Recent Travel: No Recent Travel in the [place] Within the Last 8 Weeks: No Recent Travel Out of the Country Within the Last 8 Weeks: No - Immunization History Tetanus Immunization: <5 Years Medications and Allergies Allergies Allergy/AdvReac Type Severity Reaction Status Date / Time No Known Allergies Allergy Verified 02/28/18 15:24 Home Medications Medication Instructions Recorded Confirmed Type aspirin 81 mg PO DAILY 02/28/18 02/28/18 History bupropion HCl [Wellbutrin XL] 150 mg PO QAM 02/28/18 02/28/18 History furosemide [Lasix] 20 mg PO DAILY 02/28/18 02/28/18 History lisinopril 40 mg PO DAILY 02/28/18 02/28/18 History mirtazapine [Remeron] 15 mg PO DAILY 02/28/18 02/28/18 History multivitamin 1 tab PO DAILY 02/28/18 02/28/18 History potassium chloride 10 meq PO DAILY 02/28/18 02/28/18 History ropinirole [Requip] 0.5 mg PO TID 02/28/18 02/28/18 History tamsulosin 0.4 mg PO DAILY 02/28/18 02/28/18 History Active Medications: Active Medications Acetaminophen (Tylenol) 650 mg PO Q6H PRN PRN Reason: PAIN 1-10 AND/OR FEVER >101F Hydrocodone Bitart/Acetaminophen ([place] 5/325) 1 tab PO Q4H PRN PRN Reason: PAIN SCALE 1 TO 5 Al Hydroxide/Mg Hydroxide (Milk Of Aman Luna) 30 ml PO Q12H PRN PRN Reason: Mild Constipation Albuterol (Albuterol Neb (Prn)) 2.5 mg NEB Q2HR NEB PRN PRN Reason: SHORTNESS OF BREATH/WHEEZING Bisacodyl (Dulcolax Supp) 10 mg RECTAL DAILY PRN PRN Reason: SEVERE CONSITIPATION Chlorhexidine Gluconate (Chlorhexidine 2% Cloth) 3 pack TOPICAL DAILY@0400 BRITTNI Stop: 03/06/18 03:59 Chlorhexidine Gluconate (Chlorhexidine 2% Cloth) 3 pack TOPICAL DAILY@0400 PRN PRN Reason: Extra cloth needed Stop: 03/06/18 03:59 Dextrose (D50w Vial) 50 ml IV.PUSH UNSCH PRN PRN Reason: PER HYPOGLYCEMIA PROTOCOL Glucagon (Glucagon Inj) 1 mg OTHER UNSCH PRN PRN Reason: for Hypoglycemia Protocol Hydromorphone HCl (Dilaudid Pf Inj) 1 mg IV.PUSH Q4H PRN PRN Reason: PAIN SCALE 6 TO 10 Sodium Chloride (Ns Inj) 1,000 mls @ 70 mls/hr IV.CONT .[id number] [facility] Last Admin: 02/28/18 14:32 Dose: 70 mls/hr Nicardipine HCl 25 mg/ Sodium (Chloride) 250 mls @ 25 mls/hr IV.CONT TITRATE PRN; Protocol PRN Reason: Per Protocol Magnesium Sulfate 4 gm/ Sodium (Chloride) 100 mls @ 50 mls/hr IV.SIG UNSCH PRN PRN Reason: For Magnesium 0.9 - 1.1 mg/dL Magnesium Sulfate 2 gm/ Sodium (Chloride) 100 mls @ 50 mls/hr IV.SIG UNSCH PRN PRN Reason: For Magnesium 1.2 - 1.6 mg/dL Potassium Chloride (Kcl 40 Meq Premix Inj) 40 meq in 100 mls @ 50 mls/hr IV.SIG Q2H PRN PRN Reason: For Potassium 2.8 - 3.2 mEq/L Potassium Chloride (Kcl 20 Meq Premix Inj) 20 meq in 100 mls @ 50 mls/hr IV.SIG Q2H PRN PRN Reason: For Potassium 3.3 - 3.5 mEq/L Potassium Chloride (Kcl 40 Meq Premix Inj) 40 meq in 100 mls @ 25 mls/hr IV.SIG UNSCH PRN PRN Reason: For Potassium 3.3 - 3.5 mEq/L Potassium Chloride (Kcl 20 Meq Premix Inj) 20 meq in 100 mls @ 50 mls/hr IV.SIG Q2H PRN PRN Reason: For Potassium 2.8 - 3.2 mEq/L Potassium Phosphate 30 mmol/ (Sodium Chloride) 260 mls @ 42 mls/hr IV.SIG UNSCH PRN PRN Reason: SEE LABEL COMMENTS Sodium Phosphate 30 mmol/ (Sodium Chloride) 260 mls @ 42 mls/hr IV.SIG UNSCH PRN PRN Reason: For Phosphorus < 2.5 mg/dL Insulin Aspart (Novolog Insulin Correctional Sugar Inj) 0 unit SQ Q6HR BRITTNI; Protocol Labetalol HCl (Trandate Inj) 10 mg IV.PUSH Q1H PRN PRN Reason: SBP>180, DBP>100, HR>65 Lactulose (Lactulose Liq) 30 ml PO DAILY PRN PRN Reason: SEVERE CONSITIPATION Magnesium Oxide (Mag-Ox) 800 mg PO UNSCH PRN PRN Reason: For Magnesium 1.2 - 1.6 mg/dL Ondansetron HCl (Zofran Inj) 4 mg IV.PUSH Q6H PRN PRN Reason: NAUSEA OR VOMITING Pantoprazole Sodium (Protonix Inj) 40 mg IV.PUSH DAILY BRITTNI Potassium Bicarb/Potassium Chloride (K-Lyte Cl Eff) 50 meq PO UNSCH PRN PRN Reason: For Potassium 3.3 - 3.5 mEq/L Potassium Phosphate (K-Phos Original) 2,000 mg PO Q4H PRN PRN Reason: Phosphorus Less Than 2.5 mg/dL Potassium Phosphate (K-Phos Original) 2,000 mg PO UNSCH PRN PRN Reason: SEE LABEL COMMENTS Pravastatin Sodium (Pravachol) 40 mg PO HS BRITTNI Senna/Docusate Sodium (Norma-Colace) 1 tab PO BID BRITTNI Sennosides (Senokot) 17.2 mg PO Q12H PRN PRN Reason: Moderate Constipation Sodium Chloride (Ns Flush) 2 ml IV.FLUSH BID BRITTNI Sodium Chloride (Ns Flush) 2 ml IV.FLUSH UNSCH PRN PRN Reason: FLUSH AFTER USING IV ACCESS Exam Vital signs: Vital Signs 02/28/18 14:04 02/28/18 14:09 02/28/18 14:24 Temperature 98.6 F Pulse Rate 63 Respiratory Rate 18 Blood Pressure 165/78 H Pulse Oximetry 97 97 97 Intake & Output 02/27/18 02/28/18 02/28/18 18:59 06:59 18:59 Intake Total 69.3 / 69.3 Balance 69.3 / 69.3 Weight 85.4 kg Intake: IV 69.3 / 69.3 Activase Drip 69.3 MG In Bag/ 69.3 / 69.3 Syringe 1 EACH @ 69.3 mls/hr IV .SIG ONCE ONE Rx#:[id number] - Routine Neurological Exam no bruit, heart is sinus rhythm Alert and orient x 3 CN II-XII, no facial asymmetry, eomi, no gaze deviation, tongue midline motor: moving all extremities against gravity, no focal deficit sensory: intact to light touch reflexes 1+ toes: equiv gait withheld speech: no aphasia noted, no dysarthria tremor: mild rest tremor and tremor with outstretched arms coordination: mild bradykinesia bilaterally Results - Labs CBC & Chem 7: 03/01/18 04:55 03/01/18 04:55 Labs: Laboratory Results - last 24 hr 02/28/18 02/28/18 13:29 13:29 POC Hgb (Calc) 10.5 L POC Hct 31.0 L POC Sodium 146 H POC Potassium 3.2 L POC Chloride 106 POC BUN 28 H POC Creatinine 1.4 H POC Glucose 139 H Blood Type O Positive Blood Type Recheck Required Antibody Screen Negative - Imaging Impressions Chest X-Ray 02/28/18 13:36 CONCLUSION: Negative for acute process Head CT 02/28/18 13:36 CONCLUSION: 1. No acute intracranial abnormality. 2. Atrophy. 3. Prominent ventricles slightly out of range for the overlying sulcal pattern. This may relate to more centralized forms of atrophy but I cannot exclude normal pressure hydrocephaly. Report was called by [Dr. Martinez to Dr. Linares at 1402 hours ] Head CTA 02/28/18 13:36 CONCLUSION: 1. Negative CTA Head. Results were called to Dr. Linares by Dr. Martinez at 1417 hours Neck CTA 02/28/18 13:36 CONCLUSION: 1. Patent carotid arteries and vertebral arteries bilaterally. Review/Management - Diagnosis (1) Parkinsons disease Code(s): G20 - Parkinson's disease Status: Acute Current Visit: Yes (2) Acute embolic stroke Code(s): I63.9 - Cerebral infarction, unspecified Status: Acute Current Visit: Yes - Review/Management Plan: will get MRI brain continue post TPA protocol ECHO telemetry check CT head 24 hr post TPA, if CT negative would start Plavix 75mg 24 hr post TPA monitor blood pressure, permissive HTN lipid panel, hgbA1C no change to PD meds at this time rehab consult with Dr. Mahmood PT/ST/OT [place] Addendum note pt seen examined and d/w PA as well as other staff. tpa given stroke post tpa protocol in icu. further testing as indicated.
[2018-02-28 16:42] LABS: Bilirubin,Urine Negative (Negative); Clarity,Urine Clear (Clear); Color,Urine Straw (Yellw/Straw); Glucose,Urine (UA) Negative (Negative); Leukocyte Esterase,Urine Negative (Negative); Nitrite,Urine Negative (Negative); Specific Gravity,Urine 1.016 (1.002-1.035)
--- NOTE | 2018-02-28 16:56 | MR ---
EXAM DATE: 02/28/2018 3:46 PM EDT AGE/SEX: 72 years / Male INDICATIONS: CVA. Mental status changes. CLINICAL DATA: This is the patient's initial encounter. Patient reports that signs and symptoms have been present for 1 day and indicates a pain score of 0/10. MEDICAL/SURGICAL HISTORY: Hypertension. Tonsillectomy. COMPARISON: No prior exams available for comparison. TECHNIQUE: Multiplanar, multisequence examination of the brain was performed without contrast. FINDINGS: Cerebrum: There is diffuse moderate atrophic change with sulcal prominence. The lateral ventricles a re moderately dilated in appearance as noted on the CT. No evidence of midline shift, mass lesion, he morrhage or acute infarction. No extraaxial fluid collections are seen. The pituitary gland and sup rasellar cistern are normal in configuration. White Matter: On the FLAIR weighted images there is increased signal noted in the centrum semiovale and periventricular white matter in a pattern consistent with chronic small vessel ischemic change. Posterior Fossa: The cerebellum and brainstem are intact. The 4th ventricle is midline. The cerebel lopontine angle is unremarkable. The cerebellar tonsils are normal in position. Diffusion Imaging: No focal areas of restricted diffusion are seen. No evidence of acute infarction . Extracranial: The visualized portions of the orbits and paranasal sinuses are unremarkable. CONCLUSION: 1. No acute hemorrhage or infarction. 2. Moderate atrophic change with dilatation of the lateral ventricles are noted. This could be secon mau to atrophy however normal pressure hydrocephalus cannot be excluded. 3. Mild chronic small vessel ischemic changes. Electronically signed by: Garfield Anne MD 02/28/2018 4:54 PM EDT
[2018-02-28 16:59] LABS: Amphetamine Screen,Urine Neg (Neg); Barbiturate Screen,Urine Neg (Neg); Cannabinoid Screen,Urine Neg (Neg); Cocaine Screen,Urine Neg (Neg)
[2018-02-28 17:14] LABS: Opiate Screen,Urine Neg (Neg)
[2018-02-28] MEDS: Insulin NovoLOG Aspart Correctional Sugar Inj SQ SCH (19:11)
[2018-02-28] MEDS: Senna/Docusate Sodium 8.6/50 MG Tablet PO SCH (21:48)
[2018-03-01] MEDS: Insulin NovoLOG Aspart Correctional Sugar Inj SQ SCH ×4 (00:11→18:12)
[2018-03-01] MEDS ORDERED: Chlorhexidine Gluconate 2% 1 Pack (2 Cloths) TOPICAL PRN ×2 (04:00)
[2018-03-01] MEDS ORDERED: Chlorhexidine Gluconate 2% 1 Pack (2 Cloths) TOPICAL SCH (04:00)
[2018-03-01 05:10] LABS: Baso % (Auto) 0.4 % (0.0-2.0); Eos # (Auto) 0.1 th/mm3 (0.0-0.4); Eos % (Auto) 2.7 % (0.0-4.0); Hematocrit 36.2 % (39.0-51.0); Hemoglobin 12.4 gm/dL (13.0-17.0); Lymph % (Auto) 21.6 % (9.0-44.0); Mean Corpuscular HGB Conc 34.3 % (32.0-36.0); Mean Corpuscular Hemoglobin 31.9 pg (27.0-34.0); Mean Corpuscular Volume 93.2 fL (80.0-100.0); Mean Platelet Volume 7.5 fL (7.0-11.0); Mono # (Auto) 0.3 th/mm3 (0.0-0.9); Mono % (Auto) 6.8 % (0.0-8.0); Neut # (Auto) 3.2 th/mm3 (1.8-7.7); Neut % (Auto) 68.5 % (16.0-70.0); Platelet Count 162 th/mm3 (150-450); Red Blood Count 3.88 mil/mm3 (4.50-5.90); Red Cell Distribution Width 13.3 % (11.6-17.2); White Blood Count 4.7 th/mm3 (4.0-11.0)
[2018-03-01 05:19] LABS: INR 1.1 Ratio; Prothrombin Time 11.1 sec (9.8-11.6)
[2018-03-01 05:39] LABS: Albumin 3.2 g/dL (3.4-5.0); Anion Gap 5 meq/L (5-15); Aspartate Aminotransferase 16 U/L (15-37); Blood Urea Nitrogen 20 mg/dL (7-18); Calcium 7.9 mg/dL (8.5-10.1); Carbon Dioxide 29.9 meq/L (21.0-32.0); Chloride 110 meq/L (98-107); Glomerular Filtration Rate 61 mL/min (>89); Glucose,Random 81 mg/dL (74-106); Potassium 3.4 meq/L (3.5-5.1); Sodium 145 meq/L (136-145)
[2018-03-01 05:40] LABS: Alanine Aminotransferase 17 U/L (12-78); Cholesterol 105 mg/dL (120-200); Triglycerides 72 mg/dL (42-150)
[2018-03-01 05:49] LABS: Alkaline Phosphatase 78 U/L (45-117); Chol/HDL Ratio 2.62 Ratio; LDL Cholesterol,Calculated 51 mg/dL (0-99); Phosphorus 2.6 mg/dL (2.5-4.9); Thyroid Stimulating Hormone 0.769 uIU/mL (0.358-3.740); Total Protein 6.3 g/dL (6.4-8.2)
[2018-03-01] MEDS: Chlorhexidine Gluconate 2% 1 Pack (2 Cloths) TOPICAL SCH (06:14)
[2018-03-01] MEDS: Potassium Chlor 20 mEq Premix 20 MEQ/100 ML PIGGYBACK IV.SIG PRN ×2 (06:27→13:12)
[2018-03-01] MEDS: Senna/Docusate Sodium 8.6/50 MG Tablet PO SCH ×2 (09:25→21:07)
[2018-03-01] MEDS: Pantoprazole Inj 40 MG Vial IV.PUSH SCH (09:25)
--- NOTE | 2018-03-01 10:12 | P.PN ---
Subjective Interval history: s/p tpa speech normal seems at baseline Physical Exam Vital signs: Vital Signs 02/28/18 14:00 02/28/18 14:04 02/28/18 14:09 Temperature Pulse Rate Respiratory Rate Blood Pressure Pulse Oximetry 99 97 97 02/28/18 14:15 02/28/18 14:24 02/28/18 14:30 Temperature 98.6 F Pulse Rate 77 63 68 Respiratory Rate 18 18 18 Blood Pressure 155/72 H 165/78 H 126/68 Pulse Oximetry 97 97 100 02/28/18 14:45 02/28/18 15:00 02/28/18 15:15 Temperature Pulse Rate 68 68 70 Respiratory Rate 18 18 18 Blood Pressure 158/76 H 158/76 H 174/93 H Pulse Oximetry 98 97 100 02/28/18 15:30 02/28/18 15:45 02/28/18 16:00 Temperature Pulse Rate 68 70 72 Respiratory Rate 18 16 18 Blood Pressure 143/96 H 172/89 H 170/82 H Pulse Oximetry 99 99 100 02/28/18 17:00 02/28/18 18:00 02/28/18 19:00 Temperature 98.5 F 98.5 F Pulse Rate 74 70 76 Respiratory Rate 15 14 23 Blood Pressure 142/87 H 141/80 H 117/62 Pulse Oximetry 100 99 99 02/28/18 20:00 02/28/18 22:00 03/01/18 00:00 Temperature 98.6 F 98.3 F Pulse Rate 74 68 67 Respiratory Rate 25 H 18 Blood Pressure 147/73 H 154/80 H Pulse Oximetry 98 98 03/01/18 02:00 03/01/18 04:00 03/01/18 06:00 Temperature 97.8 F Pulse Rate 67 77 79 Respiratory Rate 17 Blood Pressure 148/80 H Pulse Oximetry 96 03/01/18 08:00 Temperature 98.7 F Pulse Rate 80 Respiratory Rate 15 Blood Pressure 168/87 H Pulse Oximetry 97 Intake & Output 02/28/18 03/01/18 03/01/18 18:59 06:59 18:59 Intake Total 69.3 / 69.3 40 / 40 100 / 100 Output Total 200 / 200 900 / 900 Balance -130.7 / -130.7 -860 / -860 100 / 100 Weight 86.8 kg 85.1 kg Intake: IV 69.3 / 69.3 100 / 100 Activase Drip 69.3 MG In Bag/ 69.3 / 69.3 Syringe 1 EACH @ 69.3 mls/hr IV .SIG ONCE ONE Rx#:[id number] KCl 20 mEq Premix Inj 20 meq In 100 / 100 100 ml @ 50 mls/hr IV.SIG Q2H PRN Rx#:[id number] Oral 0 / 0 40 / 40 Output: Urine 200 / 200 900 / 900 Other: # Bowel Movements 0 0 Weight On Admission 86.8 kg Narrative: awake alert hypophonic decreased blink mask like not slurred or aphasic. motor no drift or leg lag but cogwheeling in both UE toe w/d. Results - Labs CBC & Chem 7: 03/01/18 04:55 03/01/18 04:55 Laboratory Results - last 24 hr 02/28/18 02/28/18 02/28/18 13:29 13:29 16:10 WBC RBC Hgb POC Hgb (Calc) 10.5 L Hct POC Hct 31.0 L MCV MCH MCHC RDW Plt Count MPV Neut % (Auto) Lymph % (Auto) Platte % (Auto) Eos % (Auto) Baso % (Auto) Neut # (Auto) Lymph # (Auto) [place]atte # (Auto) Eos # (Auto) Baso # (Auto) WBC Differential Differential Comment PT INR POC Sodium 146 H Sodium POC Potassium 3.2 L Potassium POC Chloride 106 Chloride Carbon Dioxide Anion Gap POC BUN 28 H BUN Creatinine POC Creatinine 1.4 H Estimated GFR POC Glucose 139 H Random Glucose Calcium Phosphorus Magnesium Total Bilirubin AST ALT Alkaline Phosphatase Total Protein Albumin Triglycerides Cholesterol LDL Cholesterol, Calc HDL Cholesterol Cholesterol/HDL Ratio TSH Urine Color Urine Clarity Urine pH Ur Specific Nelson Urine Protein Urine Glucose (UA) Urine Ketones Urine Occult Blood Urine Nitrate Urine Bilirubin Urine Urobilinogen Ur Leukocyte Esterase Urine RBC Urine WBC Micro UA Comment Ur Microscopic Review Urine Culture Comments Nasal Screen MRSA (PCR) Urine Opiates Screen Neg Ur Barbiturates Screen Neg Ur Amphetamines Screen Neg U Benzodiazepines Scrn Neg Urine Cocaine Screen Neg U Cannabinoids Screen Neg Blood Type O Positive Blood Type Recheck Required Antibody Screen Negative 02/28/18 02/28/18 03/01/18 16:10 16:55 04:55 WBC 4.7 RBC 3.88 L Hgb 12.4 L POC Hgb (Calc) Hct 36.2 L POC Hct MCV 93.2 MCH 31.9 MCHC 34.3 RDW 13.3 Plt Count 162 MPV 7.5 Neut % (Auto) 68.5 Lymph % (Auto) 21.6 Platte % (Auto) 6.8 Eos % (Auto) 2.7 Baso % (Auto) 0.4 Neut # (Auto) 3.2 Lymph # (Auto) 1.0 Platte # (Auto) 0.3 Eos # (Auto) 0.1 Baso # (Auto) 0.0 WBC Differential . Differential Comment Auto diff final PT INR POC Sodium Sodium POC Potassium Potassium POC Chloride Chloride Carbon Dioxide Anion Gap POC BUN BUN Creatinine POC Creatinine Estimated GFR POC Glucose Random Glucose Calcium Phosphorus Magnesium Total Bilirubin AST ALT Alkaline Phosphatase Total Protein Albumin Triglycerides Cholesterol LDL Cholesterol, Calc HDL Cholesterol Cholesterol/HDL Ratio TSH Urine Color Straw Urine Clarity Clear Urine pH 7.0 Ur Specific Nelson 1.016 Urine Protein Negative Urine Glucose (UA) Negative Urine Ketones Trace H Urine Occult Blood Small H Urine Nitrate Negative Urine Bilirubin Negative Urine Urobilinogen Less than 2 Ur Leukocyte Esterase Negative Urine RBC Less than 1 Urine WBC Less than 1 Micro UA Comment Culture not ind Ur Microscopic Review Not Reportable Urine Culture Comments Culture not ind Nasal Screen MRSA (PCR) Not detected Urine Opiates Screen Ur Barbiturates Screen Ur Amphetamines Screen U Benzodiazepines Scrn Urine Cocaine Screen U Cannabinoids Screen Blood Type Blood Type Recheck Antibody Screen 03/01/18 03/01/18 04:55 04:55 WBC RBC Hgb POC Hgb (Calc) Hct POC Hct MCV MCH MCHC RDW Plt Count MPV Neut % (Auto) Lymph % (Auto) Platte % (Auto) Eos % (Auto) Baso % (Auto) Neut # (Auto) Lymph # (Auto) Platte # (Auto) Eos # (Auto) Baso # (Auto) WBC Differential Differential Comment PT 11.1 INR 1.1 POC Sodium Sodium 145 POC Potassium Potassium 3.4 L POC Chloride Chloride 110 H Carbon Dioxide 29.9 Anion Gap 5 POC BUN BUN 20 H Creatinine 1.18 POC Creatinine Estimated GFR 61 L POC Glucose Random Glucose 81 Calcium 7.9 L Phosphorus 2.6 Magnesium 2.0 Total Bilirubin 0.8 AST 16 ALT 17 Alkaline Phosphatase 78 Total Protein 6.3 L Albumin 3.2 L Triglycerides 72 Cholesterol 105 L LDL Cholesterol, Calc 51 HDL Cholesterol 40.0 Cholesterol/HDL Ratio 2.62 TSH 0.769 Urine Color Urine Clarity Urine pH Ur Specific Nelson Urine Protein Urine Glucose (UA) Urine Ketones Urine Occult Blood Urine Nitrate Urine Bilirubin Urine Urobilinogen Ur Leukocyte Esterase Urine RBC Urine WBC Micro UA Comment Ur Microscopic Review Urine Culture Comments Nasal Screen MRSA (PCR) Urine Opiates Screen Ur Barbiturates Screen Ur Amphetamines Screen U Benzodiazepines Scrn Urine Cocaine Screen U Cannabinoids Screen Blood Type Blood Type Recheck Antibody Screen - Imaging Impressions Head MRI 02/28/18 00:00 CONCLUSION: 1. No acute hemorrhage or infarction. 2. Moderate atrophic change with dilatation of the lateral ventricles are noted. This could be secondary to atrophy however normal pressure hydrocephalus cannot be excluded. 3. Mild chronic small vessel ischemic changes. Chest X-Ray 02/28/18 13:36 CONCLUSION: Negative for acute process Head CT 02/28/18 13:36 CONCLUSION: 1. No acute intracranial abnormality. 2. Atrophy. 3. Prominent ventricles slightly out of range for the overlying sulcal pattern. This may relate to more centralized forms of atrophy but I cannot exclude normal pressure hydrocephaly. Report was called by [Dr. Martinez to Dr. Linares at 1402 hours ] Head CTA 02/28/18 13:36 CONCLUSION: 1. Negative CTA Head. Results were called to Dr. Linares by Dr. Martinez at 1417 hours Neck CTA 02/28/18 13:36 CONCLUSION: 1. Patent carotid arteries and vertebral arteries bilaterally. Assessment and Plan - Assessment (1) Parkinsons disease Code(s): G20 - Parkinson's disease Status: Acute (2) Acute embolic stroke Code(s): I63.9 - Cerebral infarction, unspecified Status: Acute - Plan ct 24h post tpa swallow eval and diet can start antiplatelets 24h post tpa if ct does not show a bleed restart his sinemet pt-ot rehab consult flp statin if ldl elevated scds and lovenox ok oob in chair . watch for orthostasis given his PD and will need sinemet back on board.
[2018-03-01] MEDS: Sod Chloride 0.9% Inj 1,000 ML IV.CONT SCH (10:51)
[2018-03-01 12:50] LABS: Hemoglobin A1c 5.1 % (4.3-6.0)
--- NOTE | 2018-03-01 13:09 | ECG ---
Date Performed: 02/28/2018 Time Performed: 14:06:31 PTAGE: 72 years EKG: Sinus rhythm RIGHT BUNDLE BRANCH BLOCK LEFT ANTERIOR FASCICULAR BLOCK ABNORMAL ECG NO PREVIOUS TRACING DOCTOR: Paul Duncan Interpretating Date/Time 03/01/2018 13:08:47
[2018-03-01] MEDS ORDERED: HYDROmorphone PF Inj 2 MG/ML Vial IV.PUSH PRN (14:10)
--- NOTE | 2018-03-01 14:26 | CT ---
EXAM DATE: 03/01/2018 1:59 PM EDT AGE/SEX: 72 years / Male INDICATIONS: Post TPA 24 hours. CLINICAL DATA: This is the patient's subsequent encounter. Patient reports that signs and symptoms h ave been present for 2 days and indicates a pain score of 0/10. MEDICAL/SURGICAL HISTORY: Hypertension. Parkinson's disease. . adenoidectomy RADIATION DOSE: 39.04 CTDI (mGy) COMPARISON: [facility] [place] W/O [place]AST, 02/28/2018. . TECHNIQUE: CT of the head without contrast. Using automated exposure control and adjustment of the mA and/or kV according to patient size, radiation dose was kept as low as reasonably achievable to ob tain optimal diagnostic quality images. DICOM format image data is available electronically for revi ew and comparison. FINDINGS: Cerebrum: Moderate diffuse cerebral atrophy. Redemonstration of diffuse ventriculomegaly which remai ns out of proportion to degree of atrophy. [id number] periventricular white matter hypodensitie s. No evidence of midline shift, mass lesion, hemorrhage or acute infarction. No extraaxial fluid co llections are seen. Posterior Fossa: The cerebellum and brainstem are intact. The 4th ventricle is midline. The cerebe llopontine angle is unremarkable. Extracranial: The visualized portion of the orbits is intact. Skull: The calvaria is intact. No evidence of skull fracture. CONCLUSION: 1. No intercurrent hemorrhage. 2. Redemonstration of diffuse ventriculomegaly out of proportion to degree of atrophy. Clinical sharan elation for normal pressure hydrocephalus is recommended. 3. Senescent changes with mild periventricular ischemic white matter demyelination. . Electronically signed by: Cole Bernardo MD 03/01/2018 2:25 PM EDT
--- NOTE | 2018-03-01 17:46 | ECHRPT ---
Indication: CVA/TIA CONCLUSIONS Technically difficult study. The left ventricular systolic function is grossly normal on limited imaging. There was limited left ventricular wall motion assessment due to poor endocardial visualization. Trace mitral valve regurgitation. There is mild tricuspid valve regurgitation. Large echolucency noted on subcostal views measuring 9.7cm x 6.4cm. Appears to be in the liver, pos sible hepatic cyst, clinical correlation necessary. BP: / HR: Rhythm: Sinus MEASUREMENTS (Male / Female) Normal Values Technical Quality:Technically difficult study 2D ECHO LV Diastolic Diameter PLAX 4.3 cm 4.2 - 5.9 / 3.9 - 5.3 cm LV Systolic Diameter PLAX 3.0 cm IVS Diastolic Thickness 0.9 cm 0.6 - 1.0 / 0.6 - 0.9 cm LVPW Diastolic Thickness 0.9 cm 0.6 - 1.0 / 0.6 - 0.9 cm LV Relative Wall Thickness 0.4 LVOT Diameter 2.2 cm M-MODE Aortic Root Diameter MM 3.7 cm LA Systolic Diameter MM 3.1 cm LA Ao Ratio MM 0.8 AV Cusp Separation MM 2.1 cm DOPPLER AV Peak Velocity 121.0 cm/s AV Peak Gradient 5.9 mmHg LVOT Peak Velocity 98.7 cm/s LVOT Peak Gradient 3.9 mmHg AV Area Cont Eq pk 3.1 cm TR Peak Velocity 238.0 cm/s TR Peak Gradient 22.7 mmHg Right Atrial Pressure 10.0 mmHg Pulmonary Artery Systolic Pressu 32.7 mmHg Right Ventricular Systolic Press 32.7 mmHg PV Peak Velocity 95.0 cm/s PV Peak Gradient 3.6 mmHg FINDINGS LEFT VENTRICLE The left ventricle is not well visualized. The left ventricular systolic function is grossly normal on limited imaging. There was limited left ventricular wall motion assessment due to poor endocardial visualization. RIGHT VENTRICLE The right ventricle was not well visualized. LEFT ATRIUM The left atrium was not well visualized. RIGHT ATRIUM The right atrium is not well visualized. ATRIAL SEPTUM The interatrial septum not well visualized. AORTA The aortic root and proximal ascending aorta are not well visualized. MITRAL VALVE Grossly normal in limited views. Trace mitral valve regurgitation. AORTIC VALVE The aortic valve is not well visualized. TRICUSPID VALVE The tricuspid valve is not well visualized. There is mild tricuspid valve regurgitation. PULMONARY VALVE The pulmonary valve is not well visualized. OTHER FINDINGS Large echolucency noted on subcostal views measuring 9.7cm x 6.4cm. Appears to be in the liver, pos sible hepatic cyst, clinical correlation necessary Jesus Hand DO (Electronically Signed) Final Date:01 March 2018 17:45
--- NOTE | 2018-03-01 22:17 | P.PNCC ---
Subjective Subjective Remarks/Hospital Course: Hospital Course: This is a 72-year-old male. Admission 02/28/2018. Past medical history includes depression/Parkinson's disease/BPH, urge incontinence, hypertension with history of nasal fracture. Over the past month, patient has had 8 falls according to at bedside. Patient denies however. Patient presents to [facility] acute onset of global aphasia and subjective right-sided weakness with facial droop according to . NIH scale was 11 documented with 1 for loss of consciousness, 2 for orientation, 3 for global aphasia, 2 for dysarthria, and 3 for lack of gaze to the left side CT brain revealed ventriculomegaly but no acute intracranial findings. CT angiogram of brain negative for acute intracranial findings. Sodium was elevated 146 potassium 3.2. Creatinine 1.4. Hemoglobin 10.5. Case was discussed with Dr. Dove/neurology. Patient received 7.7 mg alteplase bolus followed by 69.3 mg On my examination the patient does have a slight right facial droop. Aphasia seems resolving. He is currently oriented to person place and time. There is currently no field vision cut. His Parkinson's tremor makes coordination difficult to evaluate but strength is 5 out of 5 bilateral upper and lower extremities. Subjective: 03/01: clinically doing well. repeat head CT without bleed. stable for transfer out of ICU. Objective Vital Signs / I&O: Vital Signs 03/01/18 00:00 03/01/18 02:00 03/01/18 04:00 Temperature 36.8 C 36.6 C Pulse Rate 67 67 77 Respiratory Rate 18 17 Blood Pressure 154/80 H 148/80 H Pulse Oximetry 98 96 03/01/18 06:00 03/01/18 08:00 03/01/18 10:00 Temperature 37.1 C Pulse Rate 79 80 80 Respiratory Rate 15 Blood Pressure 168/87 H Pulse Oximetry 95 03/01/18 12:00 03/01/18 14:00 03/01/18 16:00 Temperature 37.3 C 36.8 C Pulse Rate 89 91 H 86 Respiratory Rate 16 16 Blood Pressure 161/79 H 136/82 Pulse Oximetry 96 95 03/01/18 18:00 03/01/18 20:00 03/01/18 20:57 Temperature Pulse Rate 64 72 Respiratory Rate Blood Pressure Pulse Oximetry 99 Intake & Output 03/01/18 03/01/18 03/02/18 06:59 18:59 06:59 Intake Total 40 / 40 1460 / 1460 Output Total 900 / 900 450 / 450 Balance -860 / -860 1010 / 1010 Weight 85.1 kg Intake: IV 1100 / 1100 NS Inj 1,000 ML @ 70 mls/hr IV. 1000 / 1000 CONT .[id number] BRITTNI Rx#:[id number] KCl 20 mEq Premix Inj 20 meq In 100 / 100 100 ml @ 50 mls/hr IV.SIG Q2H PRN Rx#:[id number] Oral 40 / 40 360 / 360 Output: Urine 900 / 900 450 / 450 Other: Date of Last Bowel Movement 03/01/18 03/01/18 # Bowel Movements 0 1 # Incontinent Bowel Movements 0 Weight On Admission 86.8 kg Result Diagrams: 03/01/18 04:55 03/01/18 04:55 Objective Remarks: gen: elderly male, lying in bed, no acute distress. heent: nc. at. perrl. mmm. neck: no jvd. trachea midline. chest: unlabored. equal chest rise. cv: normal rate, regular rhythm. sinus. abd: soft, nt.nd. no guarding. extr: no edema. neuro: intact. follows commands. slight resting tremor. Assessment and Plan - Assessment and Plan Plan: Neuro/Psych: CVA status post alteplase Parkinson's disease Depressive disorder NOS CT/CTA brain revealed no acute findings with exception of ventriculomegaly. Possible workup of NPH in future. MRI brain ordered along with carotid ultrasound Received 7.7 mg alteplase bolus followed by 69.3 mg over the preceding hour Neurology consultation 2D echocardiogram ordered Keep systolic blood pressure less than 180, diastolic pressure is 105 Hemoglobin A1c and lipid profile ordered Currently holding carbidopa/levodopa 25/101 tablet every 8 hours for Parkinson' s disease. Resume when clinically indicated Currently holding fluoxetine 20 mg daily and bupropion 150 mg twice daily for depression. Resume when clinically indicated Neurology consult appreciated Neurochecks per status post alteplase for CVA protocol. CV: Essential hypertension Currently holding amlodipine 10 mg daily and lisinopril 40 mg a day for hypertension resume when clinically indicated As needed labetalol 10 mg IV every 8 hours and nicardipine drip to keep systolic blood pressure less than 180/diastolic blood pressure less than 105 2D echocardiogram ordered Lipid profile pending/started on pravastatin 40 mg at night Resp: Nasal cannula to maintain saturations greater than or equal to 92% Incentive spirometry while awake As needed albuterol aerosols every 2 hours. Dyspnea GI: reg diet as tolerated. Pantoprazole for GI prophylaxis Docusate sodium/senna 1 tablet twice daily for bowel regimen : BPH urge incontinence Currently holding tamsulosin 0.4 mg daily and oxybutynin 5 mg every 8 hours for BPH has incontinence. Resume clinically indicated Endo: Sliding scale insulin to maintain euglycemia aspart insulin every 6 insulin low regimen Check TSH Renal: Acute kidney injury Monitor urine output Accurate I's and O's Avoid nephrotoxic medication Heme: Anemia Full CBC in a.m. to evaluate ID: Monitor for signs and symptomatology of infection MSK: Gait and balance disorder PT/OT evaluate and treat FEN: Hypernatremia Hypopotassemia Replace electrolytes as clinically indicated per ICU electrolyte protocol Currently on normal saline at 70 cc an hour BMP, magnesium phosphorus in a.m. Access -Utilize peripheral IV. Central line if indicated Prophylaxis -GI -pantoprazole -DVT -SCD/no pharmacological prophylaxis 24 hours post alteplase
[2018-03-02] MEDS: Insulin NovoLOG Aspart Correctional Sugar Inj SQ SCH ×4 (00:17→19:00)
[2018-03-02] MEDS: Sod Chloride 0.9% Inj 1,000 ML IV.CONT SCH ×2 (04:05→10:16)
[2018-03-02 04:22] LABS: Hematocrit 36.8 % (39.0-51.0); Hemoglobin 12.8 gm/dL (13.0-17.0); Mean Corpuscular HGB Conc 34.8 % (32.0-36.0); Mean Corpuscular Volume 92.1 fL (80.0-100.0); Mean Platelet Volume 7.7 fL (7.0-11.0); Platelet Count 164 th/mm3 (150-450); Red Blood Count 3.99 mil/mm3 (4.50-5.90); Red Cell Distribution Width 13.2 % (11.6-17.2)
[2018-03-02 04:24] LABS: INR 1.1 Ratio; Prothrombin Time 11.4 sec (9.8-11.6)
[2018-03-02] MEDS: Chlorhexidine Gluconate 2% 1 Pack (2 Cloths) TOPICAL SCH (04:42)
[2018-03-02 04:45] LABS: Calcium 7.8 mg/dL (8.5-10.1); Carbon Dioxide 26.9 meq/L (21.0-32.0); Phosphorus 2.2 mg/dL (2.5-4.9); Potassium 3.2 meq/L (3.5-5.1)
[2018-03-02] MEDS: Potassium Chloride 25 MEQ Effervescent Tablet PO PRN (05:47)
[2018-03-02] MEDS: Potassium Chlor 20 mEq Premix 20 MEQ/100 ML PIGGYBACK IV.SIG PRN (06:46)
[2018-03-02] MEDS: buPROPion 150 MG 12 HR Tablet PO SCH (10:17)
[2018-03-02] MEDS: Lisinopril 20 MG Tablet PO SCH (10:17)
[2018-03-02] MEDS: Pantoprazole Inj 40 MG Vial IV.PUSH SCH (10:18)
[2018-03-02] MEDS: Senna/Docusate Sodium 8.6/50 MG Tablet PO SCH ×2 (10:18→20:36)
[2018-03-02] MEDS: Furosemide 20 MG Tablet PO SCH (10:24)
--- NOTE | 2018-03-02 10:33 | P.PNIM ---
Subjective Interval history: No acute complaints today. Potassium level is low this morning. No headache. Physical Exam Vital signs: Vital Signs 03/01/18 12:00 03/01/18 14:00 03/01/18 16:00 Temperature 99.2 F 98.3 F Pulse Rate 89 91 H 86 Respiratory Rate 16 16 Blood Pressure 161/79 H 136/82 Pulse Oximetry 96 95 03/01/18 18:00 03/01/18 20:00 03/01/18 20:57 Temperature 97.9 F Pulse Rate 64 83 Respiratory Rate 32 H Blood Pressure 157/83 H Pulse Oximetry 96 99 03/01/18 21:00 03/01/18 22:00 03/02/18 00:00 Temperature 98.4 F Pulse Rate 80 80 77 Respiratory Rate 18 20 Blood Pressure 154/86 H Pulse Oximetry 96 97 03/02/18 02:00 03/02/18 04:00 03/02/18 06:00 Temperature 98.3 F Pulse Rate 82 70 74 Respiratory Rate 18 Blood Pressure 150/80 H Pulse Oximetry 96 03/02/18 09:55 Temperature Pulse Rate Respiratory Rate Blood Pressure Pulse Oximetry 95 Intake & Output 03/01/18 03/02/18 03/02/18 18:59 06:59 18:59 Intake Total 1460 / 1460 1600 / 1600 Output Total 450 / 450 800 / 800 Balance 1010 / 1010 800 / 800 Weight 86 kg Intake: IV 1100 / 1100 1100 / 1100 NS Inj 1,000 ML @ 70 mls/hr IV. 1000 / 1000 1000 / 1000 CONT .[id number] [facility] Rx#:[id number] KCl 20 mEq Premix Inj 20 meq In 100 / 100 100 / 100 100 ml @ 50 mls/hr IV.SIG Q2H PRN Rx#:[id number] Oral 360 / 360 500 / 500 Output: Urine 450 / 450 800 / 800 Other: Date of Last Bowel Movement 03/01/18 03/01/18 # Bowel Movements 1 # Incontinent Bowel Movements 0 Narrative: GENERAL: NAD, A&Ox3 HEAD: Normocephalic. NECK: Supple, trachea midline. No lymphadenopathy. EYES: No scleral icterus. No injection or drainage. CARDIOVASCULAR: Regular rate and rhythm without murmurs, gallops, or rubs. RESPIRATORY: Breath sounds equal bilaterally. No accessory muscle use. GASTROINTESTINAL: Abdomen soft, non-tender, nondistended. MUSCULOSKELETAL: No cyanosis, or edema. SKIN: Warm and dry. NEURO: Slowed movements, fine tremor, blunted affect Results - Labs CBC & Chem 7: 03/02/18 03:44 03/02/18 03:44 Laboratory Results - last 24 hr 03/01/18 03/01/18 03/01/18 04:55 11:57 17:36 WBC RBC Hgb Hct MCV MCH MCHC RDW Plt Count MPV PT INR Sodium Potassium Chloride Carbon Dioxide Anion Gap BUN Creatinine Estimated GFR POC Glucose 109 123 H Random Glucose Hemoglobin A1c 5.1 Calcium Phosphorus Magnesium 03/02/18 03/02/18 03/02/18 03:44 03:44 03:44 WBC 5.0 RBC 3.99 L Hgb 12.8 L Hct 36.8 L MCV 92.1 MCH 32.0 MCHC 34.8 RDW 13.2 Plt Count 164 MPV 7.7 PT 11.4 INR 1.1 Sodium 143 Potassium 3.2 L Chloride 109 H Carbon Dioxide 26.9 Anion Gap 7 BUN 21 H Creatinine 1.19 Estimated GFR 60 L POC Glucose Random Glucose 127 H Hemoglobin A1c Calcium 7.8 L Phosphorus 2.2 L Magnesium 2.0 - Imaging Impressions Head CT 03/01/18 13:30 CONCLUSION: 1. No intercurrent hemorrhage. 2. Redemonstration of diffuse ventriculomegaly out of proportion to degree of atrophy. Clinical correlation for normal pressure hydrocephalus is recommended. 3. Senescent changes with mild periventricular ischemic white matter demyelination. . Assessment and Plan - Assessment (1) Acute embolic stroke Code(s): I63.9 - Cerebral infarction, unspecified Status: Acute (2) Parkinsons disease Code(s): G20 - Parkinson's disease Status: Acute - Plan Acute CVA status post alteplase Neurology following Continue permissive hypertension for now Follow clinically for any neurologic changes Continue pravastatin Parkinson's disease Depressive disorder NOS Currently holding carbidopa/levodopa 25/101 tablet every 8 hours for Parkinson' s disease. Resume when clinically indicated Currently holding fluoxetine 20 mg daily and bupropion 150 mg twice daily for depression. Resume when clinically indicated Neurology following Essential hypertension Permissive hypertension Currently holding amlodipine 10 mg daily and lisinopril 40 mg a day for hypertension resume when clinically indicated As needed labetalol BPH urge incontinence Currently holding tamsulosin 0.4 mg daily and oxybutynin 5 mg every 8 hours for BPH has incontinence. Resume clinically indicated Acute kidney injury Follow renal function Monitor urine output Accurate I's and O's Avoid nephrotoxic medication Anemia Follow CBC Gait and balance disorder PT OT Hypernatremia Hypopotassemia Monitor and replace as needed Discontinue IV fluids DVT prophylaxis SCDs
--- NOTE | 2018-03-02 10:49 | P.PN ---
Subjective Interval history: no new issues ready for transfer out of icu Physical Exam Vital signs: Vital Signs 03/01/18 12:00 03/01/18 14:00 03/01/18 16:00 Temperature 99.2 F 98.3 F Pulse Rate 89 91 H 86 Respiratory Rate 16 16 Blood Pressure 161/79 H 136/82 Pulse Oximetry 96 95 03/01/18 18:00 03/01/18 20:00 03/01/18 20:57 Temperature 97.9 F Pulse Rate 64 83 Respiratory Rate 32 H Blood Pressure 157/83 H Pulse Oximetry 96 99 03/01/18 21:00 03/01/18 22:00 03/02/18 00:00 Temperature 98.4 F Pulse Rate 80 80 77 Respiratory Rate 18 20 Blood Pressure 154/86 H Pulse Oximetry 96 97 03/02/18 02:00 03/02/18 04:00 03/02/18 06:00 Temperature 98.3 F Pulse Rate 82 70 74 Respiratory Rate 18 Blood Pressure 150/80 H Pulse Oximetry 96 03/02/18 09:55 Temperature Pulse Rate Respiratory Rate Blood Pressure Pulse Oximetry 95 Intake & Output 03/01/18 03/02/18 03/02/18 18:59 06:59 18:59 Intake Total 1460 / 1460 1600 / 1600 Output Total 450 / 450 800 / 800 Balance 1010 / 1010 800 / 800 Weight 86 kg Intake: IV 1100 / 1100 1100 / 1100 NS Inj 1,000 ML @ 70 mls/hr IV. 1000 / 1000 1000 / 1000 CONT .[id number] [facility] Rx#:[id number] KCl 20 mEq Premix Inj 20 meq In 100 / 100 100 / 100 100 ml @ 50 mls/hr IV.SIG Q2H PRN Rx#:[id number] Oral 360 / 360 500 / 500 Output: Urine 450 / 450 800 / 800 Other: Date of Last Bowel Movement 03/01/18 03/01/18 # Bowel Movements 1 # Incontinent Bowel Movements 0 Narrative: awake alert fluent hypophonic tone cogwheeling no drift sensory nl gait held fpr pt-pt uses walker at home Results - Labs CBC & Chem 7: 03/02/18 03:44 03/02/18 03:44 Laboratory Results - last 24 hr 03/01/18 03/01/18 03/01/18 04:55 11:57 17:36 WBC RBC Hgb Hct MCV MCH MCHC RDW Plt Count MPV PT INR Sodium Potassium Chloride Carbon Dioxide Anion Gap BUN Creatinine Estimated GFR POC Glucose 109 123 H Random Glucose Hemoglobin A1c 5.1 Calcium Phosphorus Magnesium 03/02/18 03/02/18 03/02/18 03:44 03:44 03:44 WBC 5.0 RBC 3.99 L Hgb 12.8 L Hct 36.8 L MCV 92.1 MCH 32.0 MCHC 34.8 RDW 13.2 Plt Count 164 MPV 7.7 PT 11.4 INR 1.1 Sodium 143 Potassium 3.2 L Chloride 109 H Carbon Dioxide 26.9 Anion Gap 7 BUN 21 H Creatinine 1.19 Estimated GFR 60 L POC Glucose Random Glucose 127 H Hemoglobin A1c Calcium 7.8 L Phosphorus 2.2 L Magnesium 2.0 - Imaging Impressions Head CT 03/01/18 13:30 CONCLUSION: 1. No intercurrent hemorrhage. 2. Redemonstration of diffuse ventriculomegaly out of proportion to degree of atrophy. Clinical correlation for normal pressure hydrocephalus is recommended. 3. Senescent changes with mild periventricular ischemic white matter demyelination. . Assessment and Plan - Assessment (1) Parkinsons disease Code(s): G20 - Parkinson's disease Status: Acute (2) Acute embolic stroke Code(s): I63.9 - Cerebral infarction, unspecified Status: Acute - Plan ct 24h post tpa-neg can start antiplatelets restart his requip per pt does not recall dose but should know he states he is not on sinemet any longer pt-ot rehab consult scds and marquita gordon in chair . dc planning
[2018-03-03] MEDS: Insulin NovoLOG Aspart Correctional Sugar Inj SQ SCH ×4 (00:46→17:46)
[2018-03-03] MEDS: Chlorhexidine Gluconate 2% 1 Pack (2 Cloths) TOPICAL SCH (04:44)
[2018-03-03 06:32] LABS: Baso % (Auto) 0.4 % (0.0-2.0); Eos # (Auto) 0.2 th/mm3 (0.0-0.4); Eos % (Auto) 3.5 % (0.0-4.0); Hematocrit 37.4 % (39.0-51.0); Hemoglobin 12.9 gm/dL (13.0-17.0); Lymph # (Auto) 0.9 th/mm3 (1.0-4.8); Lymph % (Auto) 17.1 % (9.0-44.0); Mean Corpuscular HGB Conc 34.5 % (32.0-36.0); Mean Corpuscular Hemoglobin 31.9 pg (27.0-34.0); Mean Corpuscular Volume 92.3 fL (80.0-100.0); Mean Platelet Volume 8.7 fL (7.0-11.0); Mono # (Auto) 0.3 th/mm3 (0.0-0.9); Neut # (Auto) 3.9 th/mm3 (1.8-7.7); Platelet Count 172 th/mm3 (150-450); Red Blood Count 4.05 mil/mm3 (4.50-5.90); Red Cell Distribution Width 13.2 % (11.6-17.2); White Blood Count 5.3 th/mm3 (4.0-11.0)
[2018-03-03 06:47] LABS: INR 1.1 Ratio; Prothrombin Time 10.7 sec (9.8-11.6)
[2018-03-03 07:02] LABS: Alanine Aminotransferase 18 U/L (12-78); Albumin 3.3 g/dL (3.4-5.0); Anion Gap 10 meq/L (5-15); Aspartate Aminotransferase 15 U/L (15-37); Blood Urea Nitrogen 16 mg/dL (7-18); Calcium 8.2 mg/dL (8.5-10.1); Carbon Dioxide 24.5 meq/L (21.0-32.0); Chloride 107 meq/L (98-107); Glomerular Filtration Rate 64 mL/min (>89); Glucose,Random 102 mg/dL (74-106); Magnesium 2.1 mg/dL (1.5-2.5); Phosphorus 2.3 mg/dL (2.5-4.9); Potassium 3.4 meq/L (3.5-5.1); Sodium 141 meq/L (136-145)
[2018-03-03 07:05] LABS: Alkaline Phosphatase 77 U/L (45-117); Total Protein 6.6 g/dL (6.4-8.2)
[2018-03-03] MEDS: Lisinopril 20 MG Tablet PO SCH (09:07)
[2018-03-03] MEDS: Furosemide 20 MG Tablet PO SCH (09:08)
[2018-03-03] MEDS: Senna/Docusate Sodium 8.6/50 MG Tablet PO SCH ×2 (09:08→20:40)
[2018-03-03] MEDS: buPROPion 150 MG 12 HR Tablet PO SCH (09:09)
[2018-03-03] MEDS: Pantoprazole Inj 40 MG Vial IV.PUSH SCH (09:09)
[2018-03-03] MEDS: Potassium Chloride 25 MEQ Effervescent Tablet PO PRN (09:10)
--- NOTE | 2018-03-03 16:33 | P.PNIM ---
Subjective Interval history: The patient was resting comfortably in bed. His was at the bedside. She was concerned that the patient is too weak to go home and would like him to go to [place] rehab if possible. The patient had no acute concerns. Discussed with nursing. Physical Exam Vital signs: Vital Signs 03/02/18 18:00 03/02/18 20:00 03/02/18 22:00 Temperature 97.9 F Pulse Rate 75 91 H 81 Respiratory Rate 22 Blood Pressure 142/85 H Pulse Oximetry 98 03/03/18 00:00 03/03/18 02:00 03/03/18 04:00 Temperature 98.3 F 98.9 F Pulse Rate 93 H 98 H 86 Respiratory Rate 21 20 Blood Pressure 145/79 H 146/72 H Pulse Oximetry 95 98 03/03/18 06:00 03/03/18 08:00 03/03/18 10:00 Temperature 98.3 F Pulse Rate 71 83 74 Respiratory Rate 20 Blood Pressure 156/90 H Pulse Oximetry 96 03/03/18 10:59 03/03/18 11:10 03/03/18 12:00 Temperature 99.2 F Pulse Rate 78 83 73 Respiratory Rate 20 22 24 Blood Pressure 155/90 H 164/90 H 121/67 Pulse Oximetry 96 96 96 03/03/18 14:00 Temperature Pulse Rate 91 H Respiratory Rate Blood Pressure Pulse Oximetry Intake & Output 03/02/18 03/03/18 03/03/18 18:59 06:59 18:59 Intake Total 720 / 720 1220 / 1220 Output Total 200 / 200 Balance 520 / 520 1220 / 1220 Weight 85.6 kg Intake: IV 1100 / 1100 NS Inj 1,000 ML @ 70 mls/hr IV. 1000 / 1000 CONT .[id number] [facility] Rx#:[id number] KCl 20 mEq Premix Inj 20 meq In 100 / 100 100 ml @ 50 mls/hr IV.SIG Q2H PRN Rx#:[id number] Oral 720 / 720 120 / 120 Output: Urine 200 / 200 Other: # Voids 2 # Incontinent Voids 5 Date of Last Bowel Movement 03/01/18 03/03/18 03/03/18 # Bowel Movements 1 1 # Incontinent Bowel Movements 0 Narrative: GENERAL: NAD. HEAD: Normocephalic. NECK: Supple, trachea midline. No lymphadenopathy. EYES: No scleral icterus. No injection or drainage. CARDIOVASCULAR: Regular rate and rhythm without murmurs, gallops, or rubs. RESPIRATORY: Breath sounds equal bilaterally. No accessory muscle use. GASTROINTESTINAL: Abdomen soft, non-tender, nondistended. MUSCULOSKELETAL: No cyanosis, or edema. SKIN: Warm and dry. NEURO: Slowed movements, fine tremor, blunted affect. Results - Labs CBC & Chem 7: 03/03/18 04:39 03/03/18 13:50 Laboratory Results - last 24 hr 03/02/18 03/03/18 03/03/18 20:50 00:43 04:34 WBC RBC Hgb Hct MCV MCH MCHC RDW Plt Count MPV Neut % (Auto) Lymph % (Auto) Wheeler % (Auto) Eos % (Auto) Baso % (Auto) Neut # (Auto) Lymph # (Auto) Wheeler # (Auto) Eos # (Auto) Baso # (Auto) WBC Differential Differential Comment PT INR Sodium 141 Potassium 3.9 3.4 L Chloride 107 Carbon Dioxide 24.5 Anion Gap 10 BUN 16 Creatinine 1.14 Estimated GFR 64 L POC Glucose 107 Random Glucose 102 Calcium 8.2 L Phosphorus 2.3 L Magnesium 2.1 Total Bilirubin 0.6 AST 15 ALT 18 Alkaline Phosphatase 77 Total Protein 6.6 Albumin 3.3 L 03/03/18 03/03/18 03/03/18 04:34 04:39 12:12 WBC 5.3 RBC 4.05 L Hgb 12.9 L Hct 37.4 L MCV 92.3 MCH 31.9 MCHC 34.5 RDW 13.2 Plt Count 172 MPV 8.7 Neut % (Auto) 73.0 H Lymph % (Auto) 17.1 Wheeler % (Auto) 6.0 Eos % (Auto) 3.5 Baso % (Auto) 0.4 Neut # (Auto) 3.9 Lymph # (Auto) 0.9 L Wheeler # (Auto) 0.3 Eos # (Auto) 0.2 Baso # (Auto) 0.0 WBC Differential . Differential Comment Auto diff final PT 10.7 INR 1.1 Sodium Potassium Chloride Carbon Dioxide Anion Gap BUN Creatinine Estimated GFR POC Glucose 103 Random Glucose Calcium Phosphorus Magnesium Total Bilirubin AST ALT Alkaline Phosphatase Total Protein Albumin 03/03/18 13:50 WBC RBC Hgb Hct MCV MCH MCHC RDW Plt Count MPV Neut % (Auto) Lymph % (Auto) Wheeler % (Auto) Eos % (Auto) Baso % (Auto) Neut # (Auto) Lymph # (Auto) Wheeler # (Auto) Eos # (Auto) Baso # (Auto) WBC Differential Differential Comment PT INR Sodium Potassium 3.6 Chloride Carbon Dioxide Anion Gap BUN Creatinine Estimated GFR POC Glucose Random Glucose Calcium Phosphorus Magnesium Total Bilirubin AST ALT Alkaline Phosphatase Total Protein Albumin Assessment and Plan - Assessment (1) Acute embolic stroke Code(s): I63.9 - Cerebral infarction, unspecified Status: Acute (2) Parkinsons disease Code(s): G20 - Parkinson's disease Status: Acute - Plan Acute CVA Status post alteplase. Neurology following. S/p permissive hypertension. -Follow clinically for any neurologic changes. -Continue pravastatin. -rehab efforts. Parkinson's disease/Depressive disorder NOS The pt says he is no longer on Sinemet. -resume home meds. -Neurology following. Will need outpt follow-up. Essential hypertension S/p permissive hypertension. -resume lisinopril 40 mg a day. BPH/ urge incontinence -resume tamsulosin 0.4 mg daily and oxybutynin 5 mg every 8 hours for BPH/ incontinence. Acute kidney injury -Follow renal function -Monitor urine output -Accurate I's and O's -Avoid nephrotoxic medication Hypernatremia/ Hypokalemia Improved. -monitor and replete as needed. DVT prophylaxis: SCDs, Lovenox Discharge Planning: Rehab eval. Transfer to floor
[2018-03-03] MEDS: Enoxaparin Inj 30 MG/0.3 ML Syringe SQ SCH (17:34)
[2018-03-04] MEDS: Insulin NovoLOG Aspart Correctional Sugar Inj SQ SCH ×3 (00:01→13:00)
[2018-03-04] MEDS: Chlorhexidine Gluconate 2% 1 Pack (2 Cloths) TOPICAL SCH (04:53)
[2018-03-04 05:54] LABS: Hematocrit 36.9 % (39.0-51.0); Mean Corpuscular HGB Conc 35.4 % (32.0-36.0); Mean Corpuscular Hemoglobin 32.1 pg (27.0-34.0); Mean Corpuscular Volume 90.9 fL (80.0-100.0); Mean Platelet Volume 8.3 fL (7.0-11.0); Platelet Count 171 th/mm3 (150-450); Red Blood Count 4.06 mil/mm3 (4.50-5.90); Red Cell Distribution Width 13.2 % (11.6-17.2); White Blood Count 4.8 th/mm3 (4.0-11.0)
[2018-03-04 05:59] LABS: INR 1.1 Ratio; Prothrombin Time 10.7 sec (9.8-11.6)
[2018-03-04 06:13] LABS: Calcium 8.6 mg/dL (8.5-10.1); Carbon Dioxide 27.3 meq/L (21.0-32.0); Magnesium 2.1 mg/dL (1.5-2.5); Phosphorus 2.9 mg/dL (2.5-4.9); Potassium 3.4 meq/L (3.5-5.1)
[2018-03-04] MEDS: Furosemide 20 MG Tablet PO SCH (09:44)
[2018-03-04] MEDS: Enoxaparin Inj 30 MG/0.3 ML Syringe SQ SCH (09:45)
[2018-03-04] MEDS: Senna/Docusate Sodium 8.6/50 MG Tablet PO SCH ×2 (09:45→21:19)
[2018-03-04] MEDS: Lisinopril 20 MG Tablet PO SCH (09:45)
[2018-03-04] MEDS: Pantoprazole Inj 40 MG Vial IV.PUSH SCH (09:46)
[2018-03-04] MEDS: buPROPion 150 MG 12 HR Tablet PO SCH (09:46)
[2018-03-04] MEDS: Potassium Chloride 25 MEQ Effervescent Tablet PO PRN (09:46)
--- NOTE | 2018-03-04 18:10 | P.PNIM ---
Subjective Interval history: The pt was feeling weak when he worked with therapy today. Family at the bedside. They were hoping he would get into [facility]. No acute concerns. Physical Exam Vital signs: Vital Signs 03/03/18 20:00 03/03/18 22:00 03/04/18 00:00 Temperature 98.6 F 98.3 F Pulse Rate 82 82 76 Respiratory Rate 16 16 Blood Pressure 130/85 139/75 Pulse Oximetry 97 97 03/04/18 04:00 03/04/18 08:00 Temperature 98.3 F 99.1 F Pulse Rate 74 83 Respiratory Rate 16 16 Blood Pressure 172/91 H 139/96 H Pulse Oximetry 96 64 L Intake & Output 03/03/18 03/04/18 03/04/18 18:59 06:59 18:59 Intake Total 480 / 480 200 / 200 Output Total 400 / 400 Balance 80 / 80 200 / 200 Weight 87.1 kg Intake: Oral 480 / 480 200 / 200 Output: Urine 400 / 400 Other: # Incontinent Voids 1 6 Date of Last Bowel Movement 03/03/18 03/03/18 03/03/18 Narrative: GENERAL: NAD. HEAD: Normocephalic. NECK: Supple, trachea midline. No lymphadenopathy. EYES: No scleral icterus. No injection or drainage. CARDIOVASCULAR: Regular rate and rhythm without murmurs, gallops, or rubs. RESPIRATORY: Breath sounds equal bilaterally. No accessory muscle use. GASTROINTESTINAL: Abdomen soft, non-tender, nondistended. MUSCULOSKELETAL: No cyanosis, or edema. SKIN: Warm and dry. NEURO: Slowed movements, fine tremor, blunted affect. Results - Labs CBC & Chem 7: 03/04/18 04:29 03/04/18 04:29 Laboratory Results - last 24 hr 03/04/18 03/04/18 03/04/18 04:29 04:29 04:29 WBC 4.8 RBC 4.06 L Hgb 13.0 Hct 36.9 L MCV 90.9 MCH 32.1 MCHC 35.4 RDW 13.2 Plt Count 171 MPV 8.3 PT 10.7 INR 1.1 Sodium 142 Potassium 3.4 L Chloride 107 Carbon Dioxide 27.3 Anion Gap 8 BUN 19 H Creatinine 1.22 Estimated GFR 59 L POC Glucose Random Glucose 95 Calcium 8.6 Phosphorus 2.9 Magnesium 2.1 03/04/18 03/04/18 06:34 12:23 WBC RBC Hgb Hct MCV MCH MCHC RDW Plt Count MPV PT INR Sodium Potassium Chloride Carbon Dioxide Anion Gap BUN Creatinine Estimated GFR POC Glucose 97 91 Random Glucose Calcium Phosphorus Magnesium Assessment and Plan - Assessment (1) Acute embolic stroke Code(s): I63.9 - Cerebral infarction, unspecified Status: Acute (2) Parkinsons disease Code(s): G20 - Parkinson's disease Status: Acute - Plan Acute CVA Status post alteplase. Neurology following. S/p permissive hypertension. -Follow clinically for any neurologic changes. -Continue pravastatin. -rehab efforts. -case management consult to assist with rehab placement. Parkinson's disease/Depressive disorder NOS The pt says he is no longer on Sinemet. -resume home meds. -Neurology following. Will need outpt follow-up. Essential hypertension S/p permissive hypertension. -resume lisinopril 40 mg a day. -add amlodipine 2.5 mg daily. BPH/ urge incontinence -resume tamsulosin 0.4 mg daily and oxybutynin 5 mg every 8 hours for BPH/ incontinence. Acute kidney injury -Follow renal function -Monitor urine output -Accurate I's and O's -Avoid nephrotoxic medication Hypernatremia/ Hypokalemia Improved. -monitor and replete as needed. DVT prophylaxis: SCDs Lovenox Discharge Planning: Rehab eval. Transfer to floor
[2018-03-05 05:47] LABS: Hematocrit 36.5 % (39.0-51.0); Mean Corpuscular HGB Conc 35.7 % (32.0-36.0); Mean Corpuscular Hemoglobin 32.2 pg (27.0-34.0); Mean Corpuscular Volume 90.1 fL (80.0-100.0); Mean Platelet Volume 8.2 fL (7.0-11.0); Platelet Count 180 th/mm3 (150-450); Red Blood Count 4.05 mil/mm3 (4.50-5.90); White Blood Count 5.2 th/mm3 (4.0-11.0)
[2018-03-05 05:54] LABS: INR 1.1 Ratio; Prothrombin Time 10.7 sec (9.8-11.6)
[2018-03-05 06:12] LABS: Carbon Dioxide 27.3 meq/L (21.0-32.0); Magnesium 2.3 mg/dL (1.5-2.5); Phosphorus 3.3 mg/dL (2.5-4.9); Potassium 3.3 meq/L (3.5-5.1)
[2018-03-05] MEDS: amLODIPine 5 MG Tablet PO SCH ×2 (10:16→10:29)
[2018-03-05] MEDS: buPROPion 150 MG 12 HR Tablet PO SCH (10:27)
[2018-03-05] MEDS: Senna/Docusate Sodium 8.6/50 MG Tablet PO SCH ×2 (10:28→21:17)
[2018-03-05] MEDS: Lisinopril 20 MG Tablet PO SCH (10:28)
[2018-03-05] MEDS: Furosemide 20 MG Tablet PO SCH (10:28)
[2018-03-05] MEDS: Pantoprazole Inj 40 MG Vial IV.PUSH SCH (10:29)
[2018-03-05] MEDS: Enoxaparin Inj 30 MG/0.3 ML Syringe SQ SCH (10:29)
[2018-03-05] MEDS: Potassium Chloride 25 MEQ Effervescent Tablet PO PRN (10:33)
--- NOTE | 2018-03-05 15:36 | P.PNIM ---
Subjective Interval history: 72-year-old male with a history of Parkinson's who was admitted for acute CVA. He is in good spirits and positive about his recovery. He states he has no major deficits from the stroke but does have a lot of chronic weakness from his Parkinson's, which makes it difficult to evaluate impact of stroke at this time.. Physical Exam Vital signs: Vital Signs 03/04/18 20:00 03/05/18 00:00 03/05/18 04:00 Temperature 98.0 F 98.7 F 98.6 F Pulse Rate 95 H 87 89 Respiratory Rate 21 Blood Pressure 127/79 153/79 H 145/85 H Pulse Oximetry 97 95 97 03/05/18 08:00 Temperature 98.2 F Pulse Rate 81 Respiratory Rate 15 Blood Pressure 155/75 H Pulse Oximetry 96 Intake & Output 03/04/18 03/05/18 03/05/18 18:59 06:59 18:59 Intake Total 960 / 960 1210 / 1210 Output Total 400 / 400 Balance 960 / 960 810 / 810 Weight 88.3 kg Intake: Oral 960 / 960 1210 / 1210 Output: Urine 400 / 400 Other: # Voids 2 # Incontinent Voids 1 3 # Urine Diapers 3 Date of Last Bowel Movement 03/03/18 03/03/18 03/04/18 # Bowel Movements 1 # Incontinent Bowel Movements 0 Narrative: GENERAL: AAOx3, no acute distress SKIN: Warm and dry. No rashes HEAD: Atruamtic, normocephalic. EYES: No scleral icterus. No injection or drainage. ENT: Moist mucous membranes, patent nares, no erythema of oropharynx. NECK: Supple, trachea midline. No JVD or lymphadenopathy. Normal thyroid. CARDIOVASCULAR: Regular rate and rhythm. No murmurs, gallops, or rubs. RESPIRATORY: Breath sounds clear equal bilaterally. No crackles or wheezes. No accessory muscle use. GASTROINTESTINAL: Abdomen soft, non-tender, nondistended, normal active bowel sounds MUSCULOSKELETAL: No cyanosis, or edema. NEURO: Resting tremor, generally weak from deconditioning of chronic Parkinson's , no focal deficits, no slurring of speech Results - Labs CBC & Chem 7: 03/05/18 05:06 03/05/18 05:06 Laboratory Results - last 24 hr 03/04/18 03/05/18 03/05/18 18:50 05:06 05:06 WBC 5.2 RBC 4.05 L Hgb 13.0 Hct 36.5 L MCV 90.1 MCH 32.2 MCHC 35.7 RDW 13.0 Plt Count 180 MPV 8.2 PT INR Sodium 142 Potassium 3.3 L Chloride 107 Carbon Dioxide 27.3 Anion Gap 8 BUN 22 H Creatinine 1.26 Estimated GFR 57 L POC Glucose 106 Random Glucose 93 Calcium 8.0 L Phosphorus 3.3 Magnesium 2.3 03/05/18 05:06 WBC RBC Hgb Hct MCV MCH MCHC RDW Plt Count MPV PT 10.7 INR 1.1 Sodium Potassium Chloride Carbon Dioxide Anion Gap BUN Creatinine Estimated GFR POC Glucose Random Glucose Calcium Phosphorus Magnesium Assessment and Plan - Assessment (1) Acute embolic stroke Code(s): I63.9 - Cerebral infarction, unspecified Status: Acute (2) Parkinsons disease Code(s): G20 - Parkinson's disease Status: Acute - Plan Acute CVA s/p alteplase on admission. Continue permissive hypertension, neurochecks, PT OT Patient is appropriate for rehab placement, investigating [facility] Continue pravastatin Appreciate neurology Parkinson's disease The pt says he is no longer on Sinemet. Recommend outpatient follow-up with neurology to maximize treatment for Parkinson's Continue home meds for now Essential hypertension Continue permissive hypertension Lisinopril 40 mg a day restarted, amlodipine 2.5 mg daily restarted BPH/urge incontinence Continue Flomax and oxybutynin DVT Prophylaxis Lovenox
[2018-03-06] MEDS: Chlorhexidine Gluconate 2% 1 Pack (2 Cloths) TOPICAL SCH (05:20)
[2018-03-06 05:53] LABS: Hematocrit 37.6 % (39.0-51.0); Mean Corpuscular HGB Conc 34.5 % (32.0-36.0); Mean Corpuscular Hemoglobin 31.9 pg (27.0-34.0); Mean Corpuscular Volume 92.4 fL (80.0-100.0); Mean Platelet Volume 7.6 fL (7.0-11.0); Platelet Count 163 th/mm3 (150-450); Red Blood Count 4.07 mil/mm3 (4.50-5.90); Red Cell Distribution Width 13.5 % (11.6-17.2); White Blood Count 4.8 th/mm3 (4.0-11.0)
[2018-03-06 06:06] LABS: INR 1.1 Ratio; Prothrombin Time 10.8 sec (9.8-11.6)
[2018-03-06 06:23] LABS: Calcium 8.3 mg/dL (8.5-10.1); Carbon Dioxide 28.6 meq/L (21.0-32.0); Magnesium 2.3 mg/dL (1.5-2.5); Potassium 3.3 meq/L (3.5-5.1)
[2018-03-06 06:25] LABS: Phosphorus 2.6 mg/dL (2.5-4.9)
[2018-03-06] MEDS: Potassium Chloride 25 MEQ Effervescent Tablet PO PRN (09:29)
[2018-03-06] MEDS: buPROPion 150 MG 12 HR Tablet PO SCH (09:29)
[2018-03-06] MEDS: Pantoprazole Inj 40 MG Vial IV.PUSH SCH (09:29)
[2018-03-06] MEDS: Lisinopril 20 MG Tablet PO SCH (09:30)
[2018-03-06] MEDS: Furosemide 20 MG Tablet PO SCH (09:30)
[2018-03-06] MEDS: Enoxaparin Inj 30 MG/0.3 ML Syringe SQ SCH (09:30)
[2018-03-06] MEDS: Senna/Docusate Sodium 8.6/50 MG Tablet PO SCH ×2 (09:30→20:34)
[2018-03-06] MEDS: amLODIPine 5 MG Tablet PO SCH ×2 (09:30→10:17)
--- NOTE | 2018-03-06 17:47 | P.PNIM ---
Subjective Interval history: Patient is comfortable, content, no complaints. Tolerating p.o. well. Physical Exam Vital signs: Vital Signs 03/05/18 20:00 03/06/18 00:00 03/06/18 04:00 Temperature 99.0 F 98.3 F 98.3 F Pulse Rate 77 80 73 Respiratory Rate 11 L 15 15 Blood Pressure 130/69 136/75 132/68 Pulse Oximetry 96 96 95 03/06/18 07:00 03/06/18 08:00 03/06/18 12:00 Temperature 98.5 F 98.4 F Pulse Rate 74 71 79 Respiratory Rate 16 14 13 Blood Pressure 132/68 170/87 H 111/69 Pulse Oximetry 94 L 97 95 03/06/18 16:00 Temperature 98.4 F Pulse Rate 92 H Respiratory Rate 21 Blood Pressure 126/65 Pulse Oximetry 95 Intake & Output 03/05/18 03/06/18 03/06/18 18:59 06:59 18:59 Intake Total 720 / 720 200 / 200 Balance 720 / 720 200 / 200 Weight 82.6 kg Intake: Oral 720 / 720 200 / 200 Other: # Incontinent Voids 2 # Urine Diapers 3 1 Date of Last Bowel Movement 03/03/18 03/04/18 # Bowel Movements 0 Narrative: GENERAL: AAOx3, no acute distress SKIN: Warm and dry. No rashes HEAD: Atruamtic, normocephalic. EYES: No scleral icterus. No injection or drainage. ENT: Moist mucous membranes, patent nares, no erythema of oropharynx. NECK: Supple, trachea midline. No JVD or lymphadenopathy. Normal thyroid. CARDIOVASCULAR: Regular rate and rhythm. No murmurs, gallops, or rubs. RESPIRATORY: Breath sounds clear equal bilaterally. No crackles or wheezes. No accessory muscle use. GASTROINTESTINAL: Abdomen soft, non-tender, nondistended, normal active bowel sounds MUSCULOSKELETAL: No cyanosis, or edema. NEURO: Resting tremor, generally weak from deconditioning of chronic Parkinson's , no focal deficits, no slurring of speech Results - Labs CBC & Chem 7: 03/06/18 05:22 03/06/18 05:22 Laboratory Results - last 24 hr 03/06/18 03/06/18 03/06/18 05:22 05:22 05:22 WBC 4.8 RBC 4.07 L Hgb 13.0 Hct 37.6 L MCV 92.4 MCH 31.9 MCHC 34.5 RDW 13.5 Plt Count 163 MPV 7.6 PT 10.8 INR 1.1 Sodium 141 Potassium 3.3 L Chloride 106 Carbon Dioxide 28.6 Anion Gap 6 BUN 21 H Creatinine 1.27 Estimated GFR 56 L Random Glucose 93 Calcium 8.3 L Phosphorus 2.6 Magnesium 2.3 Assessment and Plan - Assessment (1) Acute embolic stroke Code(s): I63.9 - Cerebral infarction, unspecified Status: Acute (2) Parkinsons disease Code(s): G20 - Parkinson's disease Status: Acute - Plan Acute CVA s/p alteplase on admission. Continue permissive hypertension, neurochecks, PT OT Patient is appropriate for rehab placement, awaiting word from [facility] Continue pravastatin Appreciate neurology Parkinson's disease The pt says he is no longer on Sinemet. Recommend outpatient follow-up with neurology to maximize treatment for Parkinson's Continue home meds for now Essential hypertension Continue permissive hypertension Lisinopril 40 mg a day restarted, amlodipine 2.5 mg daily restarted BPH/urge incontinence Continue Flomax and oxybutynin DVT Prophylaxis Lovenox Discharge planning agreed to excepting patient's discharge once he is finished with rehab at [facility] Awaiting available bed at [facility]
[2018-03-07 04:45] LABS: Hematocrit 36.8 % (39.0-51.0); Hemoglobin 12.6 gm/dL (13.0-17.0); Mean Corpuscular HGB Conc 34.3 % (32.0-36.0); Mean Corpuscular Hemoglobin 31.6 pg (27.0-34.0); Mean Corpuscular Volume 92.1 fL (80.0-100.0); Platelet Count 184 th/mm3 (150-450); Red Cell Distribution Width 13.5 % (11.6-17.2); White Blood Count 4.8 th/mm3 (4.0-11.0)
[2018-03-07 05:00] LABS: Prothrombin Time 10.6 sec (9.8-11.6)
[2018-03-07 05:08] LABS: Calcium 8.1 mg/dL (8.5-10.1); Carbon Dioxide 28.2 meq/L (21.0-32.0); Magnesium 2.2 mg/dL (1.5-2.5); Potassium 3.6 meq/L (3.5-5.1)
[2018-03-07 05:09] LABS: Phosphorus 2.9 mg/dL (2.5-4.9)
[2018-03-07] MEDS: Pantoprazole Inj 40 MG Vial IV.PUSH SCH (08:35)
[2018-03-07] MEDS: Enoxaparin Inj 30 MG/0.3 ML Syringe SQ SCH (08:35)
[2018-03-07] MEDS: buPROPion 150 MG 12 HR Tablet PO SCH (08:36)
[2018-03-07] MEDS: amLODIPine 5 MG Tablet PO SCH (08:36)
[2018-03-07] MEDS: Lisinopril 20 MG Tablet PO SCH (08:36)
[2018-03-07] MEDS: Senna/Docusate Sodium 8.6/50 MG Tablet PO SCH ×2 (08:36→21:16)
[2018-03-07] MEDS: Furosemide 20 MG Tablet PO SCH (08:37)
--- NOTE | 2018-03-07 16:23 | P.PNIM ---
Subjective Interval history: Patient is alert and oriented x3 today, feeding himself but slowly due to Parkinson's and stroke deficits. He has a somewhat flat affect today compared to yesterday. Physical Exam Vital signs: Vital Signs 03/06/18 17:00 03/06/18 18:00 03/06/18 19:00 Temperature Pulse Rate 78 81 92 H Respiratory Rate 14 14 19 Blood Pressure 149/82 H Pulse Oximetry 95 97 97 03/06/18 20:00 03/06/18 21:00 03/06/18 21:08 Temperature 98.6 F Pulse Rate 86 84 82 Respiratory Rate 18 18 18 Blood Pressure 149/82 H 137/76 Pulse Oximetry 96 96 96 03/06/18 22:00 03/06/18 23:00 03/07/18 00:00 Temperature 98.6 F Pulse Rate 77 80 77 Respiratory Rate 17 15 17 Blood Pressure 129/92 H 129/92 H Pulse Oximetry 96 96 96 03/07/18 01:00 03/07/18 01:12 03/07/18 02:00 Temperature Pulse Rate 75 83 92 H Respiratory Rate 13 16 19 Blood Pressure 145/78 H Pulse Oximetry 96 96 96 03/07/18 03:00 03/07/18 04:00 03/07/18 04:19 Temperature 98.2 F Pulse Rate 88 79 75 Respiratory Rate 44 H 52 H 68 H Blood Pressure 149/81 H 131/76 131/76 Pulse Oximetry 90 L 95 95 03/07/18 05:00 03/07/18 06:00 03/07/18 06:22 Temperature Pulse Rate 74 80 75 Respiratory Rate 12 18 16 Blood Pressure 135/80 Pulse Oximetry 96 96 97 03/07/18 07:00 03/07/18 07:02 03/07/18 08:00 Temperature 98.1 F Pulse Rate 86 93 H 71 Respiratory Rate 27 H 21 19 Blood Pressure 173/128 H 165/93 H Pulse Oximetry 95 94 L 97 03/07/18 09:00 03/07/18 09:42 03/07/18 10:00 Temperature Pulse Rate 88 101 H 86 Respiratory Rate 14 18 11 L Blood Pressure 150/94 H Pulse Oximetry 95 97 97 03/07/18 11:00 03/07/18 11:13 03/07/18 12:00 Temperature 98.3 F Pulse Rate 97 H 111 H 109 H Respiratory Rate 24 15 14 Blood Pressure 134/73 134/73 Pulse Oximetry 96 91 L 96 03/07/18 13:00 03/07/18 14:01 03/07/18 15:00 Temperature Pulse Rate 103 H 110 H 93 H Respiratory Rate 13 25 H 21 Blood Pressure 122/58 L Pulse Oximetry 95 96 96 03/07/18 16:00 Temperature 98.1 F Pulse Rate 87 Respiratory Rate 12 Blood Pressure Pulse Oximetry 94 L Intake & Output 03/06/18 03/07/18 03/07/18 18:59 06:59 18:59 Intake Total 480 / 480 Balance 480 / 480 Weight 78.4 kg Intake: Oral 480 / 480 Other: # Urine Diapers 3 3 Date of Last Bowel Movement 03/06/18 03/06/18 03/06/18 # Bowel Movements 1 Narrative: GENERAL: AAOx3, no acute distress SKIN: Warm and dry. No rashes HEAD: Atruamtic, normocephalic. EYES: No scleral icterus. No injection or drainage. ENT: Moist mucous membranes, patent nares, no erythema of oropharynx. NECK: Supple, trachea midline. No JVD or lymphadenopathy. Normal thyroid. CARDIOVASCULAR: Regular rate and rhythm. No murmurs, gallops, or rubs. RESPIRATORY: Breath sounds clear equal bilaterally. No crackles or wheezes. No accessory muscle use. GASTROINTESTINAL: Abdomen soft, non-tender, nondistended, normal active bowel sounds MUSCULOSKELETAL: No cyanosis, or edema. NEURO: Resting tremor, generally weak from deconditioning of chronic Parkinson's , no focal deficits, no slurring of speech Results - Labs CBC & Chem 7: 03/07/18 04:16 03/07/18 04:16 Laboratory Results - last 24 hr 03/07/18 03/07/18 03/07/18 04:16 04:16 04:16 WBC 4.8 RBC 4.00 L Hgb 12.6 L Hct 36.8 L MCV 92.1 MCH 31.6 MCHC 34.3 RDW 13.5 Plt Count 184 MPV 8.0 PT 10.6 INR 1.0 Sodium 141 Potassium 3.6 Chloride 106 Carbon Dioxide 28.2 Anion Gap 7 BUN 23 H Creatinine 1.26 Estimated GFR 57 L Random Glucose 94 Calcium 8.1 L Phosphorus 2.9 Magnesium 2.2 Assessment and Plan - Assessment (1) Acute embolic stroke Code(s): I63.9 - Cerebral infarction, unspecified Status: Acute (2) Parkinsons disease Code(s): G20 - Parkinson's disease Status: Acute - Plan Acute CVA s/p alteplase on admission. Continue permissive hypertension, neurochecks, PT OT Patient's [employer] insurance declined admission to [facility], stating they would approve outpatient SNF rehab Continue pravastatin Appreciate neurology Parkinson's disease The pt says he is no longer on Sinemet. Recommend outpatient follow-up with neurology to maximize treatment for Parkinson's Continue home meds for now Essential hypertension Continue permissive hypertension Lisinopril 40 mg a day restarted, amlodipine 2.5 mg daily restarted BPH/urge incontinence Continue Flomax and oxybutynin DVT Prophylaxis Lovenox Discharge planning Patient was declined by [email or web address] for [facility] admission He is approved for senior living rehab facility Will plan for discharge to SNF when facility is selected by patient or his
--- NOTE | 2018-03-07 19:18 | XR ---
EXAM DATE: 03/07/2018 12:00 AM EDT AGE/SEX: 72 years / Male INDICATIONS: Cough. CLINICAL DATA: This is the patient's initial encounter. Patient reports that signs and symptoms have been present for 1 day and indicates a pain score of 0/10. MEDICAL/SURGICAL HISTORY: Hypertension. None. COMPARISON: [facility] – [place] 1V SINGLE AP, 02/28/2018. . FINDINGS: Two frontal views of the chest demonstrate the lungs to be symmetrically aerated without evidence of mass, infiltrate or effusion. The cardiomediastinal contours are unremarkable. Osseous structures a re intact. CONCLUSION: Negative examination. Electronically signed by: Jc Martinez MD 03/07/2018 5:15 PM EDT
[2018-03-08] MEDS: Lisinopril 20 MG Tablet PO SCH (08:43)
[2018-03-08] MEDS: buPROPion 150 MG 12 HR Tablet PO SCH (08:43)
[2018-03-08] MEDS: Senna/Docusate Sodium 8.6/50 MG Tablet PO SCH ×2 (08:44→21:27)
[2018-03-08] MEDS: Furosemide 20 MG Tablet PO SCH (08:44)
[2018-03-08] MEDS: amLODIPine 5 MG Tablet PO SCH (08:44)
[2018-03-08] MEDS: Pantoprazole Inj 40 MG Vial IV.PUSH SCH (08:45)
[2018-03-08] MEDS: Enoxaparin Inj 30 MG/0.3 ML Syringe SQ SCH (08:45)
[2018-03-08 09:40] LABS: Hematocrit 37.5 % (39.0-51.0); Hemoglobin 13.1 gm/dL (13.0-17.0); Mean Corpuscular HGB Conc 34.9 % (32.0-36.0); Mean Corpuscular Volume 91.7 fL (80.0-100.0); Mean Platelet Volume 7.9 fL (7.0-11.0); Platelet Count 201 th/mm3 (150-450); Red Blood Count 4.09 mil/mm3 (4.50-5.90); Red Cell Distribution Width 13.3 % (11.6-17.2); White Blood Count 4.5 th/mm3 (4.0-11.0)
[2018-03-08 09:48] LABS: Prothrombin Time 10.5 sec (9.8-11.6)
--- NOTE | 2018-03-08 09:51 | P.PNIM ---
Subjective Interval history: Follow-up Parkinson's disease, acute embolic stroke, hypertension. Patient seen and examined, laying in bed, alert and oriented x3, cooperative. Patient denies any headache or dizziness, denies any pain, chest pain or shortness of breath. Patient denies any abdominal pain, nausea, vomiting, diarrhea, or constipation. Patient denies any fever or chills. Patient stated doing better. Patient stated he will did be going to a nursing rehab facility, her his to decide where to go. Physical Exam Vital signs: Vital Signs 03/07/18 09:42 03/07/18 10:00 03/07/18 11:00 Temperature Pulse Rate 101 H 86 97 H Respiratory Rate 18 11 L 24 Blood Pressure 150/94 H Pulse Oximetry 97 97 96 03/07/18 11:13 03/07/18 12:00 03/07/18 13:00 Temperature 98.3 F Pulse Rate 111 H 109 H 103 H Respiratory Rate 15 14 13 Blood Pressure 134/73 134/73 Pulse Oximetry 91 L 96 95 03/07/18 14:01 03/07/18 15:00 03/07/18 16:00 Temperature 98.1 F Pulse Rate 110 H 93 H 87 Respiratory Rate 25 H 21 12 Blood Pressure 122/58 L Pulse Oximetry 96 96 94 L 03/07/18 17:20 03/07/18 20:00 03/08/18 00:00 Temperature 97.3 F L 98.2 F Pulse Rate 84 97 H Respiratory Rate 16 20 Blood Pressure 119/76 139/77 110/67 Pulse Oximetry 96 97 03/08/18 04:00 03/08/18 08:00 Temperature 98.0 F 98.0 F Pulse Rate 93 H 84 Respiratory Rate 17 17 Blood Pressure 154/96 H 156/88 H Pulse Oximetry 97 98 Intake & Output 03/07/18 03/08/18 03/08/18 18:59 06:59 18:59 Intake Total 110 / 110 Balance 110 / 110 Weight 84.3 kg Intake: Oral 110 / 110 Other: Date of Last Bowel Movement 03/06/18 03/06/18 03/06/18 # Bowel Movements 1 # Incontinent Bowel Movements 0 Narrative: GENERAL: Well-developed, well-nourished, elderly-looking male, in no apparent distress SKIN: Warm and dry. HEAD: Atraumatic. Normocephalic. EYES: Pupils equal and round. No scleral icterus. No injection or drainage. ENT: No nasal bleeding or discharge. Mucous membranes pink and moist. NECK: Trachea midline. No JVD. CARDIOVASCULAR: Regular rate and rhythm. RESPIRATORY: No accessory muscle use. Clear to auscultation. Breath sounds equal bilaterally. GASTROINTESTINAL: Abdomen soft, non-tender, nondistended. Hepatic and splenic margins not palpable. MUSCULOSKELETAL: Extremities without clubbing, cyanosis, or edema. No obvious deformities. NEUROLOGICAL: Awake and alert and oriented x3. Generalized weakness, moving all 4 extremities. Normal speech. PSYCHIATRIC: Flat mood and affect; insight and judgment normal. Cooperative, pleasant. Results - Labs CBC & Chem 7: 03/07/18 04:16 03/07/18 04:16 - Imaging Impressions Chest X-Ray 03/07/18 00:00 CONCLUSION: Negative examination. Assessment and Plan - Assessment (1) Acute embolic stroke Code(s): I63.9 - Cerebral infarction, unspecified Status: Acute (2) Parkinsons disease Code(s): G20 - Parkinson's disease Status: Acute (3) Hypertension Code(s): I10 - Essential (primary) hypertension Status: Acute - Plan Acute CVA/Acute Embolic Stroke s/p alteplase on admission. -Continue permissive hypertension, -Appreciate neurology - neuro-checks - PT /OT/St rehab per protocol -Continue pravastatin, aspirin Parkinson's disease The pt says he is no longer on Sinemet. Recommend outpatient follow-up with neurology to maximize treatment for Parkinson's Continue home meds Requip Essential hypertension -Continue permissive hypertension -Continue lisinopril 40 mg a day and amlodipine 2.5 mg daily restarted -Continue Lasix, monitor BMP -Monitor blood pressure BPH/urge incontinence Continue Flomax and oxybutynin DVT Prophylaxis: Lovenox Patient's [employer] insurance declined admission to [facility], stating they would approve outpatient SNF rehab Code Status: Full code Discussed Condition With: Patient and nurse Discharge Planning: Plan to discharge to SNF/rehab when bed available. Insurance [employer] approved for SNF placement. hot blast worker please assist.
[2018-03-08 10:07] LABS: Calcium 8.3 mg/dL (8.5-10.1); Carbon Dioxide 30.5 meq/L (21.0-32.0); Magnesium 2.4 mg/dL (1.5-2.5); Potassium 3.9 meq/L (3.5-5.1)
[2018-03-08 10:08] LABS: Phosphorus 2.8 mg/dL (2.5-4.9)
--- NOTE | 2018-03-09 09:19 | P.PNIM ---
Subjective Interval history: Follow-up generalized weakness, Parkinson's disease, acute embolic stroke, hypertension. Patient seen and examined, laying in bed, family in room identified herself to be a . Patient stated he sleep well last night, denies any headache, pain, chest pain, or shortness of breath. Patient do not remember if he ate last night the said he did not last night. Patient encouraged to eat breakfast this morning, patient agreed. Patient denies any abdominal pain, nausea, vomiting, diarrhea or constipation. Patient denies any fever or chills. address concern on the rash on his legs, patient denies any itchiness or pain. Stated the rash started 3 days ago. It is not getting better. also discussed patient's placement, agreed to go to [facility] and rehab. Patient's stated that she will go there today to look at it. However she agreed and wanted to have a long-term placement for him also. Physical Exam Vital signs: Vital Signs 03/08/18 12:00 03/08/18 16:00 03/08/18 20:00 Temperature 99.2 F 97.9 F 97.7 F Pulse Rate 88 112 H 100 H Respiratory Rate 18 20 18 Blood Pressure 140/78 130/80 165/88 H Pulse Oximetry 98 98 97 03/08/18 20:01 03/08/18 23:56 03/09/18 00:00 Temperature 97.8 F Pulse Rate 100 H 87 91 H Respiratory Rate 18 Blood Pressure 138/68 Pulse Oximetry 96 03/09/18 04:00 Temperature 97.9 F Pulse Rate 86 Respiratory Rate 18 Blood Pressure 144/69 H Pulse Oximetry 98 Intake & Output 03/08/18 03/09/18 03/09/18 18:59 06:59 18:59 Intake Total 600 / 600 Balance 600 / 600 Weight 82.3 kg Intake: Oral 600 / 600 Other: # Voids 1 # Incontinent Voids 2 # Urine Diapers 1 Date of Last Bowel Movement 03/07/18 03/07/18 Narrative: GENERAL: Well-developed, well-nourished, elderly-looking male, alert and oriented x3 in no apparent distress SKIN: Warm and dry. HEAD: Atraumatic. Normocephalic. EYES: Pupils equal and round. No scleral icterus. No injection or drainage. ENT: No nasal bleeding or discharge. Mucous membranes pink and moist. NECK: Trachea midline. No JVD. CARDIOVASCULAR: Regular rate and rhythm. RESPIRATORY: No accessory muscle use. Clear to auscultation. Breath sounds equal bilaterally. GASTROINTESTINAL: Abdomen soft, non-tender, nondistended. Hepatic and splenic margins not palpable. MUSCULOSKELETAL: Extremities without clubbing, cyanosis, or edema. No obvious deformities. NEUROLOGICAL: Awake and alert and oriented x3. Generalized weakness, moving all 4 extremities with some minimal hand tremors. Normal speech but slow. PSYCHIATRIC: Flat mood and affect; insight and judgment unreliable, cooperative , pleasant. Results - Labs CBC & Chem 7: 03/08/18 08:35 03/08/18 08:35 Laboratory Results - last 24 hr 03/08/18 03/08/18 03/08/18 08:35 08:35 08:35 WBC 4.5 RBC 4.09 L Hgb 13.1 Hct 37.5 L MCV 91.7 MCH 32.0 MCHC 34.9 RDW 13.3 Plt Count 201 MPV 7.9 PT 10.5 INR 1.0 Sodium 142 Potassium 3.9 Chloride 107 Carbon Dioxide 30.5 Anion Gap 5 BUN 21 H Creatinine 1.22 Estimated GFR 59 L Random Glucose 91 Calcium 8.3 L Phosphorus 2.8 Magnesium 2.4 Assessment and Plan - Assessment (1) Acute embolic stroke Code(s): I63.9 - Cerebral infarction, unspecified Status: Acute (2) Parkinsons disease Code(s): G20 - Parkinson's disease Status: Acute (3) Hypertension Code(s): I10 - Essential (primary) hypertension Status: Acute - Plan This is a 72-year-old male with past medical history of Parkinson's disease, depression, BPH, urgent continence, hypertension, and nasal fracture. Patient went to the hospital to get evaluated due to frequent and multiple falls at home x8 according to the and had global aphasia, with subjective right-sided weakness, and facial droop facial droop. Acute CVA/Acute Embolic Stroke s/p alteplase on admission. -Continue permissive hypertension, -Appreciate neurology - neuro-checks - PT /OT/St rehab per protocol -Continue pravastatin, aspirin Parkinson's disease The pt says he is no longer on Sinemet. Recommend outpatient follow-up with neurology to maximize treatment for Parkinson's Continue home meds Requip Essential hypertension -Continue permissive hypertension -Continue lisinopril 40 mg a day and amlodipine 2.5 mg daily restarted -Continue Lasix, monitor BMP -Monitor blood pressure BPH/urge incontinence Continue Flomax and oxybutynin Generalized weakness Unable to care for self -PT OT rehab per protocol -Patient may benefit from SNF/rehab for strengthening and gait training, medication management and ADLs DVT Prophylaxis: Lovenox Patient's [employer] insurance declined admission to [facility], stating they would approve outpatient SNF/rehab. Patient as of today patient family agreed to go to [facility], awaiting to be accepted Code Status: Full code Discussed Condition With: Patient, family, nurse health care social worker Discharge Planning: Plan to discharge to SNF/rehab when bed available. Insurance [employer] approved for SNF placement. delinquency prevention social worker consult appreciated. Patient's family/ agreed to go to [facility], and possible long-term care, awaiting to be accepted
[2018-03-09] MEDS: Furosemide 20 MG Tablet PO SCH (09:35)
[2018-03-09] MEDS: buPROPion 150 MG 12 HR Tablet PO SCH (09:37)
[2018-03-09] MEDS: Lisinopril 20 MG Tablet PO SCH (09:37)
[2018-03-09] MEDS: Senna/Docusate Sodium 8.6/50 MG Tablet PO SCH ×2 (09:37→22:42)
[2018-03-09] MEDS: amLODIPine 5 MG Tablet PO SCH (09:38)
[2018-03-09] MEDS: Enoxaparin Inj 30 MG/0.3 ML Syringe SQ SCH (09:42)
[2018-03-09] MEDS: Pantoprazole Inj 40 MG Vial IV.PUSH SCH (09:43)
[2018-03-09 11:20] LABS: Prothrombin Time 10.6 sec (9.8-11.6)
[2018-03-10 07:36] LABS: INR 1.1 Ratio; Prothrombin Time 10.7 sec (9.8-11.6)
[2018-03-10] MEDS: Lisinopril 20 MG Tablet PO SCH (09:32)
[2018-03-10] MEDS: Senna/Docusate Sodium 8.6/50 MG Tablet PO SCH ×2 (09:32→21:05)
[2018-03-10] MEDS: amLODIPine 5 MG Tablet PO SCH (09:32)
[2018-03-10] MEDS: buPROPion 150 MG 12 HR Tablet PO SCH (09:32)
[2018-03-10] MEDS: Furosemide 20 MG Tablet PO SCH (09:32)
[2018-03-10] MEDS: Enoxaparin Inj 30 MG/0.3 ML Syringe SQ SCH (09:33)
[2018-03-10] MEDS: Pantoprazole Inj 40 MG Vial IV.PUSH SCH (09:34)
--- NOTE | 2018-03-10 10:46 | P.DS ---
Date of admission: 02/28/18 14:42 Primary care physician: Joe Georges MD Attending physician on discharge: Trupti Peña Anticipated date of discharge: 03/10/18 Brief History from admission: This is a 72-year-old male. Admission 02/28/2018. Past medical history includes depression/Parkinson's disease/BPH, urge incontinence, hypertension with history of nasal fracture. Over the past month, patient has had 8 falls according to at bedside. Patient denies however. Patient presents to [facility] acute onset of global aphasia and subjective right-sided weakness with facial droop according to . NIH scale was 11 documented with 1 for loss of consciousness, 2 for orientation, 3 for global aphasia, 2 for dysarthria, and 3 for lack of gaze to the left side CT brain revealed ventriculomegaly but no acute intracranial findings. CT angiogram of brain negative for acute intracranial findings. Sodium was elevated 146 potassium 3.2. Creatinine 1.4. Hemoglobin 10.5. Case was discussed with Dr. Dove/neurology. Patient received 7.7 mg alteplase bolus followed by 69.3 mg On my examination the patient does have a slight right facial droop. Aphasia seems resolving. He is currently oriented to person place and time. There is currently no field vision cut. His Parkinson's tremor makes coordination difficult to evaluate but strength is 5 out of 5 bilateral upper and lower extremities. Patient update on day of discharge: Follow-up generalized weakness, Parkinson's disease, acute embolic stroke, hypertension, stopped status post TPA treatment. Patient laying in bed, nurse in the room for a.m. care. Patient stated eating well, and slept well last night. Patient stated bowels are good. Stated had physical therapy yesterday and did well. Patient denies any pain or shortness of breath, denies any headache or dizziness, denies any pain, chest pain, shortness of breath. Patient denies any abdominal pain, nausea, vomiting, diarrhea or constipation. Patient denies any fever or chills. Discussed to patient plan to discharge to SNF/rehabilitation facility to continue physical therapy/OT and rehab for deconditioning, strengthening and gait training, When bed available. DS: Diagnosis - Discharge Diagnosis (1) Acute embolic stroke Status: Acute (2) Parkinsons disease Status: Acute (3) Hypertension Status: Acute DS: Medications - Discharge Medications Prescriptions: amlodipine [Norvasc] 2.5 mg PO DAILY 30 Days #30 tab clopidogrel [Plavix] 75 mg PO DAILY 30 Days #30 tab clotrimazole-betamethasone [Lotrisone] 1 applicatio TOPICAL BID 14 Days #1 g pravastatin 40 mg PO HS 30 Days #30 tab DS: Summary Hospital Course: This is a 72-year-old male with past medical history of Parkinson's disease, depression, BPH, urgent continence, hypertension, and nasal fracture. Patient went to the hospital to get evaluated due to frequent and multiple falls at home x8 according to the and had global aphasia, with subjective right-sided weakness, and facial droop facial droop.CT brain revealed ventriculomegaly but no acute intracranial findings. CT angiogram of brain negative for acute intracranial findings. Sodium was elevated 146 potassium 3.2. Creatinine 1.4. Hemoglobin 10.5. Case was discussed with Dr. Dove/ neurology. Patient received 7.7 mg alteplase bolus followed by 69.[address] of the brain with no acute intracranial findings. Patient was transferred to medical floor for physical therapy/OT evaluation rehab and medical management. Plan to transfer to SNF/rehabilitation, as the family unable to care for him at home. - Time Spent with Patient Total time spent providing and/or coordinating discharge services: Greater than 30 minutes - Quality: Stroke Last date observed well: 02/28/18 Last time observed well: 12:30 - Quality: VTE Deep Vein Thrombosis/Pulmonary Embolism Present on Admission: No Exam Vital signs: Vital Signs 03/09/18 12:00 03/09/18 16:00 03/09/18 20:00 Temperature 98.1 F 97.4 F L 98.5 F Pulse Rate 96 H 96 H 90 Respiratory Rate 20 20 18 Blood Pressure 108/70 130/84 134/86 Pulse Oximetry 96 94 L 94 L 03/10/18 00:00 03/10/18 04:00 Temperature 97.8 F 98.1 F Pulse Rate 82 87 Respiratory Rate 18 18 Blood Pressure 132/83 143/92 H Pulse Oximetry 98 95 Intake & Output 03/09/18 03/10/18 03/10/18 18:59 06:59 18:59 Intake Total 240 / 240 Balance 240 / 240 Weight 81.5 kg Intake: Oral 240 / 240 Other: # Voids 2 2 Date of Last Bowel Movement 03/07/18 03/09/18 # Bowel Movements 0 Narrative: GENERAL: Well-developed, well-nourished, elderly-looking male, alert and oriented x3 in no apparent distress SKIN: Warm and dry. HEAD: Atraumatic. Normocephalic. EYES: Pupils equal and round. No scleral icterus. No injection or drainage. ENT: No nasal bleeding or discharge. Mucous membranes pink and moist. NECK: Trachea midline. No JVD. CARDIOVASCULAR: Regular rate and rhythm. RESPIRATORY: No accessory muscle use. Clear to auscultation. Breath sounds equal bilaterally. GASTROINTESTINAL: Abdomen soft, non-tender, nondistended. Hepatic and splenic margins not palpable. MUSCULOSKELETAL: Extremities without clubbing, cyanosis, or edema. No obvious deformities. NEUROLOGICAL: Awake and alert and oriented x3. Generalized weakness, moving all 4 extremities with right hand tremors. Normal speech but slow. PSYCHIATRIC: Flat mood and affect; insight and judgment unreliable, cooperative , pleasant. Results Procedures completed during hospitalization: TPA Labs on day of discharge: Labs from last 24 hours 03/10/18 03/09/18 06:27 09:35 PT 10.7 10.6 INR 1.1 1.0 - Impressions ITS Impressions Head MRI 02/28/18 00:00 CONCLUSION: 1. No acute hemorrhage or infarction. 2. Moderate atrophic change with dilatation of the lateral ventricles are noted. This could be secondary to atrophy however normal pressure hydrocephalus cannot be excluded. 3. Mild chronic small vessel ischemic changes. Head CTA 02/28/18 13:36 CONCLUSION: 1. Negative CTA Head. Results were called to Dr. Linares by Dr. Martinez at 1417 hours Neck CTA 02/28/18 13:36 CONCLUSION: 1. Patent carotid arteries and vertebral arteries bilaterally. Head CT 03/01/18 13:30 CONCLUSION: 1. No intercurrent hemorrhage. 2. Redemonstration of diffuse ventriculomegaly out of proportion to degree of atrophy. Clinical correlation for normal pressure hydrocephalus is recommended. 3. Senescent changes with mild periventricular ischemic white matter demyelination. . Chest X-Ray 03/07/18 00:00 CONCLUSION: Negative examination. Discharge Plan - Discharge Disposition Patient Disposition: [facility] Rehab Inpatient - Discharge Condition Condition: Fair - Discharge Order Discharge Orders: Discharge Order (Routine); Ordered 03/10/18 Ordered By: Linda Sutton - Discharge Details Anticipated Discharge Date: 03/10/18 Discharge Comment: DC to SNF - Physicians Team Primary Care Provider: Joe Georges Attending Provider: Trupti Pompa Other Providers: Bessy Dove MD ; Cesia Mahmood MD ; Min[facility]a,[place]a ; [facility] ; [facility],[place]
[2018-03-10] MEDS ORDERED: Influenza (Quadrivalent) Vaccine 0.5 ML Syringe IM ONE (21:00)
[2018-03-11 07:17] LABS: INR 1.1 Ratio
[2018-03-11] MEDS: Senna/Docusate Sodium 8.6/50 MG Tablet PO SCH ×2 (09:54→21:06)
[2018-03-11] MEDS: buPROPion 150 MG 12 HR Tablet PO SCH (09:54)
[2018-03-11] MEDS: Lisinopril 20 MG Tablet PO SCH (09:54)
[2018-03-11] MEDS: amLODIPine 5 MG Tablet PO SCH (09:54)
[2018-03-11] MEDS: Furosemide 20 MG Tablet PO SCH (09:55)
[2018-03-11] MEDS: Enoxaparin Inj 30 MG/0.3 ML Syringe SQ SCH (09:55)
[2018-03-11] MEDS: Pantoprazole Inj 40 MG Vial IV.PUSH SCH (09:56)
--- NOTE | 2018-03-11 10:25 | P.PN ---
Subjective Interval history: Follow-up for CVA, right-sided weakness, HTN, Parkinson's. The patient has no new medical complaints today. He is hungry and wants to eat breakfast. Reports continued right-sided weakness, no acute worsening. Denies any headache , lightheadedness, dizziness, chest pain, shortness of breath, or abdominal complaints. Patient is medically stable, awaiting placement at rehab. Physical Exam Vital signs: Vital Signs 03/10/18 12:00 03/10/18 16:00 03/10/18 20:00 Temperature 98.0 F 98.8 F Pulse Rate 98 H 87 80 Respiratory Rate 16 16 Blood Pressure 122/65 114/65 Pulse Oximetry 96 96 03/10/18 23:56 03/11/18 04:00 03/11/18 08:00 Temperature 98.1 F 98.4 F 98.0 F Pulse Rate 88 96 H 90 Respiratory Rate 18 18 16 Blood Pressure 124/70 143/82 H 169/92 H Pulse Oximetry 97 97 97 Intake & Output 03/10/18 03/11/18 03/11/18 18:59 06:59 18:59 Intake Total 720 / 720 480 / 480 Output Total 400 / 400 Balance 320 / 320 480 / 480 Weight 82.7 kg Intake: Oral 720 / 720 480 / 480 Output: Urine 400 / 400 Other: # Voids 2 # Incontinent Voids 2 2 # Urine Diapers 1 Date of Last Bowel Movement 03/09/18 03/09/18 # Bowel Movements 0 0 # Incontinent Bowel Movements 0 1 Narrative: GENERAL: Well-nourished, well-developed pleasant elderly male patient in [facility]. SKIN: Warm and dry. No rash. HEENT: Normocephalic. Atraumatic. Pupils equal and round. Mucous membranes pink and moist. CARDIOVASCULAR: Regular rate and rhythm. No murmur appreciated. RESPIRATORY: No accessory muscle use. Clear to auscultation. Breath sounds equal bilaterally. GASTROINTESTINAL: Abdomen soft, non-tender, nondistended. Normoactive bowel sounds x4. MUSCULOSKELETAL: No obvious deformities. Extremities without clubbing, cyanosis , or edema. NEUROLOGICAL: Awake and alert. No obvious cranial nerve deficits. Generalized weakness, slightly worse on the right, moving all extremities spontaneously. Normal speech. Mild right facial droop. PSYCHIATRIC: Appropriate mood and affect; insight and judgment fair. Results - Labs CBC & Chem 7: 03/08/18 08:35 03/08/18 08:35 Laboratory Results - last 24 hr 03/11/18 06:33 PT 11.0 INR 1.1 - Imaging Head MRI 02/28/18 00:00 CONCLUSION: 1. No acute hemorrhage or infarction. 2. Moderate atrophic change with dilatation of the lateral ventricles are noted. This could be secondary to atrophy however normal pressure hydrocephalus cannot be excluded. 3. Mild chronic small vessel ischemic changes. Chest X-Ray 02/28/18 13:36 CONCLUSION: Negative for acute process Head CT 02/28/18 13:36 CONCLUSION: 1. No acute intracranial abnormality. 2. Atrophy. 3. Prominent ventricles slightly out of range for the overlying sulcal pattern. This may relate to more centralized forms of atrophy but I cannot exclude normal pressure hydrocephaly. Report was called by [Dr. Martinez to Dr. Linares at 1402 hours ] Head CTA 02/28/18 13:36 CONCLUSION: 1. Negative CTA Head. Results were called to Dr. Linares by Dr. Martinez at 1417 hours Neck CTA 02/28/18 13:36 CONCLUSION: 1. Patent carotid arteries and vertebral arteries bilaterally. Head CT 03/01/18 13:30 CONCLUSION: 1. No intercurrent hemorrhage. 2. Redemonstration of diffuse ventriculomegaly out of proportion to degree of atrophy. Clinical correlation for normal pressure hydrocephalus is recommended. 3. Senescent changes with mild periventricular ischemic white matter demyelination. . Chest X-Ray 03/07/18 00:00 CONCLUSION: Negative examination. - Procedures TPA Assessment and Plan - Assessment (1) Acute embolic stroke Code(s): I63.9 - Cerebral infarction, unspecified Status: Acute (2) Parkinsons disease Code(s): G20 - Parkinson's disease Status: Acute (3) Hypertension Code(s): I10 - Essential (primary) hypertension Status: Acute - Plan 72-year-old male with past medical history of Parkinson's disease, depression, BPH, urgent continence, hypertension, and nasal fracture. Patient went to the hospital to get evaluated due to frequent and multiple falls at home x8 according to the and had global aphasia, with subjective right- sided weakness, and facial droop facial droop. Acute CVA/Acute Embolic Stroke s/p alteplase on admission. -S/p permissive hypertension -Neurology consulted, appreciate assistance -neuro checks -Continue pravastatin, aspirin -PT /OT/ST, recommendig rehab -Stable, case management arranging discharge to SNF/rehab Parkinson's disease -The pt says he is no longer on Sinemet. -Recommend outpatient follow-up with neurology to maximize treatment for Parkinson's -Continue home meds Requip Essential hypertension -S/p permissive hypertension -Continue lisinopril 40 mg a day and amlodipine 2.5 mg daily restarted -Continue Lasix, monitor BMP -Monitor blood pressure BPH/urge incontinence -Continue Flomax and oxybutynin Generalized weakness Unable to care for self -PT OT rehab -Patient would benefit from SNF/rehab for strengthening and gait training, medication management and ADLs DVT Prophylaxis: Lovenox Discharge Planning: The patient is medically stable for discharge to SNF/rehab when arranged by case management. See discharge summary from 03/10.
[2018-03-12 09:26] LABS: INR 1.1 Ratio; Prothrombin Time 10.9 sec (9.8-11.6)
[2018-03-12] MEDS: Lisinopril 20 MG Tablet PO SCH (10:23)
[2018-03-12] MEDS: amLODIPine 5 MG Tablet PO SCH (10:23)
[2018-03-12] MEDS: Senna/Docusate Sodium 8.6/50 MG Tablet PO SCH (10:24)
[2018-03-12] MEDS: buPROPion 150 MG 12 HR Tablet PO SCH (10:24)
[2018-03-12] MEDS: Furosemide 20 MG Tablet PO SCH (10:24)
[2018-03-12] MEDS: Enoxaparin Inj 30 MG/0.3 ML Syringe SQ SCH (10:28)
[2018-03-12] MEDS: Pantoprazole Inj 40 MG Vial IV.PUSH SCH (10:28)
--- NOTE | 2018-03-12 12:18 | P.PN ---
Subjective Interval history: Follow-up for CVA, right-sided weakness, HTN, Parkinson's. No acute concerns today. Denies any worsening R sided weakness. Denies any chest pain or shortness of breath. Awaiting placement. Physical Exam Vital signs: Vital Signs 03/11/18 16:00 03/11/18 19:45 03/11/18 20:00 Temperature 98.2 F 98.3 F Pulse Rate 104 H 91 H 93 H Respiratory Rate 18 18 Blood Pressure 123/71 120/76 Pulse Oximetry 95 97 03/11/18 23:25 03/12/18 00:00 03/12/18 04:00 Temperature 97.9 F 98.4 F Pulse Rate 86 93 H 88 Respiratory Rate 18 18 18 Blood Pressure 134/84 169/90 H Pulse Oximetry 96 96 03/12/18 08:00 Temperature 98.0 F Pulse Rate 86 Respiratory Rate 20 Blood Pressure 155/82 H Pulse Oximetry 96 Intake & Output 03/11/18 03/12/18 03/12/18 18:59 06:59 18:59 Intake Total 480 / 480 Output Total 400 / 400 Balance 80 / 80 Weight 83.6 kg Intake: Oral 480 / 480 Output: Urine 400 / 400 Other: # Voids 2 # Incontinent Voids 2 1 # Urine Diapers 1 Date of Last Bowel Movement 03/09/18 03/12/18 # Bowel Movements 0 1 # Incontinent Bowel Movements 1 Narrative: GENERAL: Well-nourished, well-developed pleasant elderly male patient in [facility]. SKIN: Warm and dry. No rash. HEENT: Normocephalic. Atraumatic. Pupils equal and round. Mucous membranes pink and moist. CARDIOVASCULAR: Regular rate and rhythm. No murmur appreciated. RESPIRATORY: No accessory muscle use. Clear to auscultation. Breath sounds equal bilaterally. GASTROINTESTINAL: Abdomen soft, non-tender, nondistended. Normoactive bowel sounds x4. MUSCULOSKELETAL: No obvious deformities. Extremities without clubbing, cyanosis , or edema. NEUROLOGICAL: Awake and alert. No obvious cranial nerve deficits. Generalized weakness, slightly worse on the right, moving all extremities spontaneously. Normal speech. Mild right facial droop. PSYCHIATRIC: Appropriate mood and affect; insight and judgment fair. Results - Labs CBC & Chem 7: 03/08/18 08:35 03/08/18 08:35 Laboratory Results - last 24 hr 03/12/18 08:30 PT 10.9 INR 1.1 - Procedures TPA Assessment and Plan - Assessment (1) Acute embolic stroke Code(s): I63.9 - Cerebral infarction, unspecified Status: Acute (2) Parkinsons disease Code(s): G20 - Parkinson's disease Status: Acute (3) Hypertension Code(s): I10 - Essential (primary) hypertension Status: Acute - Plan 72-year-old male with past medical history of Parkinson's disease, depression, BPH, urgent continence, hypertension, and nasal fracture. Patient went to the hospital to get evaluated due to frequent and multiple falls at home x8 according to the and had global aphasia, with subjective right- sided weakness, and facial droop facial droop. Acute CVA/Acute Embolic Stroke s/p alteplase on admission. -S/p permissive hypertension -Neurology consulted, appreciate assistance -neuro checks -Continue pravastatin, aspirin -PT /OT/ST, recommending rehab -Stable, case management arranging discharge to SNF/rehab Parkinson's disease -The pt says he is no longer on Sinemet. -Recommend outpatient follow-up with neurology to maximize treatment for Parkinson's -Continue home meds Requip Essential hypertension -S/p permissive hypertension -Continue lisinopril 40 mg a day and amlodipine 2.5 mg daily restarted -Continue Lasix, monitor BMP -Monitor blood pressure BPH/urge incontinence -Continue Flomax and oxybutynin Generalized weakness Unable to care for self -PT OT rehab -Patient would benefit from SNF/rehab for strengthening and gait training, medication management and ADLs DVT Prophylaxis: Lovenox Discharge Planning: The patient is medically stable for discharge to SNF/rehab when arranged by case management. See discharge summary from 03/10.
[2018-03-12 15:00] VITALS: PULSE 85
[2018-03-12 16:17] VITALS: BP 122/62; RESP 16; TEMP 97.7; O2SAT 96
== END 2018-03-12 17:35 ==
LOC: NEPC 13:27 → NEDA 14:42 → N03 16:51 → N05 03-07 17:01
PROVIDERS: ADMIT Family Medicine; ATTEND Family Medicine